=== PATIENT | female | born 1980 | race Caucasian/White ===

== ENCOUNTER 2017-01-17 10:54 | Emergency (ER) | payer OTHER ==
[2017-01-17 11:09] VITALS: TEMP 98
[2017-01-17] MEDS ORDERED: DIPH,PERTUS(ACELL)TETVAC-LF 0.5 ML VIAL IM ONE (11:48)
[2017-01-17] MEDS ORDERED: IBUPROFEN 800 MG TAB PO STA (11:49)
--- NOTE | 2017-01-17 12:28 | ED ---
Head Injury HPI - General Chief complaint: Head Injury Stated complaint: head injury Time Seen by Provider: 01/17/17 11:11 Source: patient Mode of arrival: ambulatory Limitations: no limitations - History of Present Illness Initial comments: 36-year-old female presented for evaluation of scalp laceration. She states that she was bending down to grab something for her dog and when she stood up she hit the left parietal side of her head on her dining room table. She denies any loss of consciousness or anticoagulation use however she states that she has since had an headache. She denies any intractable nausea or vomiting, dizziness, ataxia, or change in vision. Bleeding was controlled prior to arrival to the ED. - Related Data Previous Rx's Medication Instructions Recorded Ibuprofen [Motrin] 800 mg PO Q6HR #30 tab 01/17/17 Allergies/Adverse reactions: Allergies Allergy/AdvReac Type Severity Reaction Status Date / Time unknown antibiotic Allergy Rash/Hives Uncoded 01/17/17 11:09 Review of Systems ROS Statement: Those systems with pertinent positive or pertinent negative responses have been documented in the HPI. ROS Other: All systems not noted in ROS Statement are negative. Eyes: Denies: eye pain, vision change Respiratory: Denies: cough, dyspnea Cardiovascular: Denies: chest pain, dyspnea on exertion Gastrointestinal: Denies: nausea, vomiting Skin: Reports: lesions (Laceration). Denies: rash Neurological: Reports: headache. Denies: weakness Past Medical History Additional Past Medical History / Comment(s): hx back pain History of Any Multi-Drug Resistant Organisms: None Reported Past Surgical History: Section, Tubal Ligation Additional Past Surgical History / Comment(s): surgery to throat for cellulitis, Past Psychological History: Bipolar Smoking Status: Former smoker Past Alcohol Use History: None Reported Past Drug Use History: None Reported, Marijuana General Exam Limitations: no limitations General appearance: alert, in no apparent distress Head exam: Present: normocephalic, other (Scalp laceration) Eye exam: Present: normal appearance, PERRL, EOMI ENT exam: Present: normal exam, normal oropharynx Neck exam: Present: full ROM. Absent: tenderness Respiratory exam: Present: normal lung sounds bilaterally. Absent: respiratory distress Cardiovascular Exam: Present: regular rate, normal rhythm Rectal exam: Present: deferred Back exam: Present: normal inspection, full ROM Neurological exam: Present: alert, oriented X3, CN II-XII intact, normal gait, reflexes normal. Absent: altered, abnormal gait, motor sensory deficit Skin exam: Present: warm, dry (2 cm laceration to left parietal scalp) Course Vital Signs 01/17/17 01/17/17 11:06 12:41 Temperature 98.0 F Pulse Rate 78 83 Respiratory 16 18 Rate Blood Pressure 130/63 127/76 O2 Sat by Pulse 98 98 Oximetry Procedures - Laceration Laceration #1 Consent Obtained: verbal consent Time Out Performed: Yes Indication: laceration Site: scalp Size (cm): 2 Description: linear Depth: involves muscle layer, arterial injury Type of Sutures: other (Ceres) Number of Sutures: 2 Complications: pain Patient Tolerated Procedure: well Medical Decision Making - Medical Decision Making 36-year-old female presenting for evaluation of left parietal scalp laceration. Only associated symptoms are headache. Denies any loss of consciousness or anticoagulant use. Physical examination reveals cranial nerves II through XII intact without focal neurologic deficits and normal gait and station. Laceration is 2 cm and linear, easily approximated. She is uncertain of her last tetanus update and this will be provided today. Wound was irrigated copiously and then 2 wendy were applied without consultation. Patient was given staple care instructions and instructed to return to this facility within 5-7 days for staple removal. Further advised to return to this facility if her symptoms should worsen or persist. She acknowledged an understanding of all information provided and agreed with this plan of care. Disposition Clinical Impression: Scalp laceration Disposition: HOME SELF-CARE Condition: Stable Instructions: Laceration (ED), Staple Care (ED) Additional Instructions: Please use medication as discussed. Please follow up with family doctor if symptoms have not improved over the next two days. Please return to the emergency room if your symptoms increase or worsen or for any other concerns. Prescriptions: Ibuprofen [Motrin] 800 mg PO Q6HR #30 tab Referrals: Braeden Pratt MD [Primary Care Provider] - 1-2 days Time of Disposition: 12:28
[2017-01-17 12:43] VITALS: BP 127/76; PULSE 83; RESP 18
== END 2017-01-17 12:43 | disposition home or self-care (01) ==
LOC: EC 10:54
DX: S01.01XA Laceration without foreign body of scalp, initial encounter (principal); Z87.891 Personal history of nicotine dependence; Z23 Encounter for immunization; Z88.1 Allergy status to other antibiotic agents; W22.8XXA Striking against or struck by other objects, initial encounter; Y93.89 Activity, other specified
CPT/HCPCS: 12001; 90471; 90715; 99283

== ENCOUNTER 2017-04-27 21:04 | Emergency (ER) | payer OTHER ==
[2017-04-27 21:09] VITALS: RESP 18
--- NOTE | 2017-04-27 21:46 | ED ---
ENT HPI - General Chief complaint: ENT Stated complaint: white spots on throat Time Seen by Provider: 04/27/17 21:16 Source: patient, RN notes reviewed Mode of arrival: ambulatory Limitations: no limitations - History of Present Illness Initial comments: This is a 36-year-old female who presents to the emergency department with chief complaint of sore throat. Patient states that she awoke this morning with a sore throat. She states that it started to feel better throughout the day. She took a nap and woke up at approximately 5 PM this evening. She states that her sore throat had returned. She looked in the mirror and noticed white spots on her tonsils. Patient states that she also feels warm and has chills. She states that she is a current, every day smoker and does have a mild cough. Denies any recorded fevers. Denies abdominal pain, nausea or vomiting, diarrhea or constipation. Denies any difficulty breathing. Patient is concerned because she has a history of cellulitis of the throat, for which she had to be admitted and have surgery. - Related Data Previous Rx's Medication Instructions Recorded Ibuprofen [Motrin] 800 mg PO Q6HR #30 tab 01/17/17 Amoxicillin 500 mg PO Q12HR #20 cap 04/27/17 Allergies Allergy/AdvReac Type Severity Reaction Status Date / Time unknown antibiotic Allergy Rash/Hives Uncoded 04/27/17 21:09 Review of Systems ROS Statement: Those systems with pertinent positive or pertinent negative responses have been documented in the HPI. ROS Other: All systems not noted in ROS Statement are negative. Past Medical History Additional Past Medical History / Comment(s): hx back pain, cellulitis in throat History of Any Multi-Drug Resistant Organisms: None Reported Past Surgical History: Section, Tubal Ligation Additional Past Surgical History / Comment(s): surgery to throat for cellulitis, Past Psychological History: Bipolar Smoking Status: Former smoker Past Alcohol Use History: None Reported Past Drug Use History: None Reported, Marijuana General Exam - General Exam Comments Initial Comments: General: Awake and alert, well-developed; in no apparent distress. Afebrile. HEENT: Head atraumatic, normocephalic. Pupils are equal, round and reactive to light. Extraocular movements intact. Oropharynx moist with erythema and bilateral tonsillar exudates. Soft palate rises normally. No muffled voice or drooling. Left TM is pearly without effusion. Right TM has cerumen impaction. After cerumen disimpaction, right TM is visualized. Right TM is also pearly without effusion. Neck: Supple. Normal ROM. Tender cervical lymphadenopathy. Cardiovascular: Regular rate and rhythm. No murmurs, rubs or gallops. Chest symmetrical. Respiratory: Lungs clear to auscultation bilaterally. No wheezes, rales or rhonchi. Normal respiratory effort with no use of accessory muscles. Musculoskeletal: Normal ROM, no tenderness bilateral upper and lower extremities. Ambulating normally. Skin: [place], warm and dry without rashes or lesions. Neurological: Alert and oriented x3. CN II-XII grossly intact. Speech is fluent and answers are appropriate. No focal neuro deficits. Psychiatric: Normal mood and affect. No overt signs of depression or anxiety noted. Limitations: no limitations Course Vital Signs 04/27/17 04/27/17 21:07 22:53 Temperature 98.8 F 97.8 F Pulse Rate 95 79 Respiratory 18 18 Rate Blood Pressure 145/83 115/73 O2 Sat by Pulse 96 99 Oximetry Procedures - Ear Wax Removal Right Ear Ear Canal Irrigated by: other (myself, ARI) Ear Canal Irrigated With: warm saline using syringe/angiocath Ear Canal(s) Curetted: plastic loops Results: Re-examined: cerumen removed completely TM Visible: TM(s) intact, normal appearance Ear Canal: atraumatic Patient Tolerated Procedure: well, no complications Medical Decision Making - Medical Decision Making This is a 36-year-old female who presents to the emergency department with chief complaint of sore throat. Patient does have exudates on tonsils. Soft palate rises normally. Denies fevers or chills. Denies difficulty breathing. Rapid strep and influenza were negative. Patient does have a history of throat cellulitis. She states she was admitted and had surgery. She was given a dose of steroids while in the emergency department. Soft tissue neck x-ray was performed. This revealed normal epiglottis with some enlargement of adenoids and tonsils. Patient was also tested for mononucleosis. This was negative. She is in no acute distress and vital signs have been stable throughout entire emergency department stay. Patient will be discharged home with a prescription for antibiotics. Return parameters were discussed including difficulty in breathing. Patient will be discharged home at this time. She is in agreement with plan and voices understanding. All questions were answered. - Lab Data Lab Results 04/27/17 04/27/17 04/27/17 Range/Units 21:15 21:15 22:27 Heterophile Antibody Negative (Negative) Influenza Type A RNA Not Detected (Not Detectd) Influenza Type B (PCR) Not Detected (Not Detectd) Group A Strep Rapid Negative (Negative) - Radiology Data Radiology results: report reviewed X-ray soft tissue neck findings: A pleurodesis normal. Subglottic trachea appears normal. Adenoids are indistinct. Tonsils are probably enlarged. Impression: Normal epiglottis. The tonsils and adenoids appear enlarged. As read by Dr. Armijo. Disposition Clinical Impression: Acute pharyngitis Disposition: HOME SELF-CARE Condition: Good Instructions: Pharyngitis (ED) Additional Instructions: Please take medications as prescribed. Please follow up with primary care provider within 1-2 days. Return to emergency department if symptoms should worsen or any concerns arise. Prescriptions: Amoxicillin 500 mg PO Q12HR #20 cap Referrals: Denise Desai PAC [REFERRING] - 1-2 days Time of Disposition: 23:02
[2017-04-27] MEDS ORDERED: methylPREDNISolone SOD SUCCI 125 MG/2 ML VIAL IM STA (22:09)
[2017-04-27 22:54] VITALS: BP 115/73; PULSE 79; TEMP 97.8
--- NOTE | 2017-04-27 22:58 | XR ---
EXAMINATION TYPE: XR soft tissue neck DATE OF EXAM: 04/27/2017 COMPARISON: NONE HISTORY: Sore throat TECHNIQUE: 2 views FINDINGS: Epiglottis is normal. Subglottic trachea appears normal. Adenoids are indistinct. Tonsils a re probably enlarged. IMPRESSION: Normal epiglottis. The tonsils and adenoids appear enlarged.
== END 2017-04-27 23:10 | disposition home or self-care (01) ==
LOC: EC 21:04
DX: J02.9 Acute pharyngitis, unspecified (principal); H61.21 Impacted cerumen, right ear; J05.10 Acute epiglottitis without obstruction; Z87.891 Personal history of nicotine dependence; Z88.1 Allergy status to other antibiotic agents
CPT/HCPCS: 36415; 86308; 87081; 87430; 87502; 70360; 99283; 69210; 96372; J2930

== ENCOUNTER 2017-04-29 16:24 | Inpatient (IN) | payer OTHER ==
[2017-04-29] MEDS ORDERED: RX INFO: IV CONTRAST WAS GIVEN 1 EACH MISC MISCELLANE PRN (17:06)
[2017-04-29] MEDS ORDERED: KETOROLAC 30 MG/ML 1 ML VIAL IVP STA (17:06)
[2017-04-29] MEDS ORDERED: SODIUM CHLORIDE 0.9% 1,000 ML IV STA (17:06)
--- NOTE | 2017-04-29 17:11 | ED ---
General Adult HPI - General Chief complaint: ENT Stated complaint: Throat Pain/Swelling Time Seen by Provider: 04/29/17 16:59 Source: patient, RN notes reviewed Mode of arrival: ambulatory Limitations: no limitations - History of Present Illness Initial comments: 36-year-old female presents to the emergency department with a chief complaint of continued sore throat. Patient was seen here a few days ago and she is started on antibiotics for pharyngitis. She states that she has a history of stroke cellulitis and states that it typically starts is what appears to be pharyngitis and then turns into a skin infection. She states that increased pain and swelling to the anterior aspect of the neck. She states that it is hard to swallow. She states that this is much like what happens when her throat cellulitis occurs. She was concerned due to the continued pain and swelling so she thought that she should be seen. She hasn't had any fever or chills. There is been no nausea or vomiting. She states she is very concerned because it improved for a day and now is getting worse and is reminding her of when she had this throat cellulitis. Patient denies any recent fever, chills, shortness of breath, chest pain, back pain, abdominal pain, nausea vomiting, numbness or tingling, dysuria or hematuria, constipation or diarrhea, headaches or visual changes, or any other current symptoms. - Related Data Home Medications Medication Instructions Recorded Confirmed Ibuprofen [Motrin] 800 mg PO Q6HR PRN 04/29/17 04/29/17 Previous Rx's Medication Instructions Recorded Amoxicillin 500 mg PO Q12HR #20 cap 04/27/17 Allergies Allergy/AdvReac Type Severity Reaction Status Date / Time unknown antibiotic Allergy Rash/Hives Uncoded 04/29/17 16:31 Review of Systems ROS Statement: Those systems with pertinent positive or pertinent negative responses have been documented in the HPI. ROS Other: All systems not noted in ROS Statement are negative. Past Medical History Past Medical History: No Reported History Additional Past Medical History / Comment(s): hx back pain, cellulitis in throat History of Any Multi-Drug Resistant Organisms: None Reported Past Surgical History: Section, Tubal Ligation Additional Past Surgical History / Comment(s): surgery to throat for cellulitis, Past Psychological History: Bipolar Smoking Status: Former smoker Past Alcohol Use History: None Reported Past Drug Use History: None Reported, Marijuana General Exam Limitations: no limitations General appearance: alert, in no apparent distress Head exam: Present: atraumatic, normocephalic, normal inspection Eye exam: Present: normal appearance, PERRL, EOMI. Absent: scleral icterus, conjunctival injection, periorbital swelling ENT exam: Present: mucous membranes moist, other (Erythematous posterior) Neck exam: Present: tenderness (anterior palpation). Absent: normal inspection (minimal swelling), meningismus, lymphadenopathy Respiratory exam: Present: normal lung sounds bilaterally. Absent: respiratory distress, wheezes, rales, rhonchi, stridor Cardiovascular Exam: Present: regular rate, normal rhythm, normal heart sounds. Absent: systolic murmur, diastolic murmur, rubs, gallop, clicks Neurological exam: Present: alert, oriented X3 Psychiatric exam: Present: normal affect, normal mood Skin exam: Present: warm, dry, intact, normal color. Absent: rash Course Vital Signs 04/29/17 04/29/17 16:27 19:12 Temperature 96.8 F L Pulse Rate 97 75 Respiratory 18 18 Rate Blood Pressure 121/67 131/59 O2 Sat by Pulse 98 98 Oximetry Medical Decision Making - Medical Decision Making 36 yo female presents to the ER with cc of throat swelling. This time patient' s lab work and CAT scan of been reviewed. Due to her history of a what she states is a throat cellulitis and the fact that she feels increased swelling to the anterior neck and difficulty swallowing as well as elevated white count we will admit the patient on Unasyn. The patient will be admitted to Dr. Story who spoke with Dr. Hughes regarding the patient we will consult ENT as well. Patient is in agreement with this plan all questions have been answered. - Lab Data Result diagrams: 04/29/17 17:19 04/29/17 17:19 Lab Results 04/29/17 04/29/17 Range/Units 17:19 17:19 WBC 16.9 H (3.8-10.6) k/uL RBC 5.19 (3.80-5.40) m/uL Hgb 13.6 (11.4-16.0) gm/dL Hct 44.8 (34.0-46.0) % MCV 86.4 (80.0-100.0) fL MCH 26.3 (25.0-35.0) pg MCHC 30.4 L (31.0-37.0) g/dL RDW 14.5 (11.5-15.5) % Plt Count 357 (150-450) k/uL Neutrophils % 73 % Lymphocytes % 19 % Monocytes % 4 % Eosinophils % 2 % Basophils % 0 % Neutrophils # 12.3 H (1.3-7.7) k/uL Lymphocytes # 3.3 (1.0-4.8) k/uL Monocytes # 0.8 (0-1.0) k/uL Eosinophils # 0.3 (0-0.7) k/uL Basophils # 0.1 (0-0.2) k/uL Hypochromasia Slight Sodium 144 (137-145) mmol/L Potassium 4.0 (3.5-5.1) mmol/L Chloride 106 (98-107) mmol/L Carbon Dioxide 25 (22-30) mmol/L Anion Gap 13 mmol/L BUN 13 (7-17) mg/dL Creatinine 0.80 (0.52-1.04) mg/dL Est GFR (MDRD) Af Amer >60 (>60 ml/min/1.73 sqM) Est GFR (MDRD) Non-Af >60 (>60 ml/min/1.73 sqM) Glucose 88 (74-99) mg/dL Calcium 9.6 (8.4-10.2) mg/dL Total Bilirubin 0.4 (0.2-1.3) mg/dL AST 17 (14-36) U/L ALT 24 (9-52) U/L Alkaline Phosphatase 93 (38-126) U/L Total Protein 6.9 (6.3-8.2) g/dL Albumin 4.1 (3.5-5.0) g/dL - Radiology Data Radiology results: report reviewed, image reviewed Disposition Clinical Impression: Acute pharyngitis, Submandibular gland infection Disposition: ADMITTED IP TO THIS [facility] Condition: Stable Referrals: Braeden Pratt MD [Primary Care Provider] - 1-2 days Decision Date: 04/29/17 Decision Time: 19:20
[2017-04-29 17:37] LABS: Basophils # (A) 0.1 k/uL (0-0.2); Basophils % (A) 0 %; Eosinophils # (A) 0.3 k/uL (0-0.7); Eosinophils % (A) 2 %; HCT 44.8 % (34.0-46.0); HGB 13.6 gm/dL (11.4-16.0); Hypochromasia Slight; Lymphocytes # (A) 3.3 k/uL (1.0-4.8); Lymphocytes % (A) 19 %; MCH 26.3 pg (25.0-35.0); MCHC 30.4 g/dL (31.0-37.0); MCV 86.4 fL (80.0-100.0); Mean Platelet Volume 7.3; Monocytes # (A) 0.8 k/uL (0-1.0); Monocytes % (A) 4 %; Neutrophils # (A) 12.3 k/uL (1.3-7.7); Neutrophils % (A) 73 %; Platelet Count 357 k/uL (150-450); RBC 5.19 m/uL (3.80-5.40); RDW 14.5 % (11.5-15.5); WBC 16.9 k/uL (3.8-10.6)
[2017-04-29 17:47] LABS: ALT 24 U/L (9-52); AST 17 U/L (14-36); Albumin 4.1 g/dL (3.5-5.0); Alkaline Phosphatase 93 U/L (38-126); Anion Gap 13 mmol/L; Blood Urea Nitrogen 13 mg/dL (7-17); Calcium 9.6 mg/dL (8.4-10.2); Carbon Dioxide 25 mmol/L (22-30); Chloride 106 mmol/L (98-107); Glucose 88 mg/dL (74-99); Sodium 144 mmol/L (137-145); Total Bilirubin 0.4 mg/dL (0.2-1.3); Total Protein 6.9 g/dL (6.3-8.2)
--- NOTE | 2017-04-29 18:28 | CT ---
EXAMINATION TYPE: CT soft tissue neck w con DATE OF EXAM: 04/29/2017 5:56 PM COMPARISON: CT 06/25/2013 HISTORY: Throat swelling and pain, Hx of cellulitis to throat. CT DLP: 648 mGycm Automated exposure control for dose reduction was used. CONTRAST: CT scan of the neck is performed following with IV Contrast, patient injected with 100 mL of Omnipaqu e 300. Axial images are obtained, coronal and sagittal reformatted images are reviewed. FINDINGS: Airway: Widely patent. No abnormalities. Parotid/submandibular glands: No gross abnormality seen. Carotid/Vascular Structures: Patent and unremarkable. Osseous Structures: Negative. NECK SOFT TISSUES: Are no abnormal fluid or gas collections to suggest abscess. No geographic focus o f inflammatory change. IMPRESSION: NEGATIVE EXAMINATION.
[2017-04-29] MEDS ORDERED: AMPICILLIN-SULBACTAM 3 GM in SODIUM CHLORIDE 0.9% 100 ML IVPB STA (19:13)
[2017-04-29] MEDS ORDERED: NALOXONE 0.4 MG/ML 1 ML VIAL IV PRN (19:20)
[2017-04-29] MEDS ORDERED: ACETAMINOPHEN TAB 325 MG TAB PO PRN (19:20)
[2017-04-29] MEDS: SODIUM CHLORIDE 0.9% 1,000 ML IV SCH (19:30)
[2017-04-29 20:41] VITALS: BMI 34.3
--- NOTE | 2017-04-29 20:47 | P.HPIM ---
History of Present Illness 36-year-old female was recently seen in ER with fever and sore throat and at that time infectious mononucleosis testing was done which was negative patient was sent home on him home on amoxicillin patient now came in with the swelling and redness and of the chin area, patient is admitted for submandibular cellulitis. ENT was consulted patient was started on ampicillin sulbactam patient has poor dentition with some redness in the tongue there is no Bradley's angina patient was planing of drooling denied any trismus. Patient is afebrile now. His CT of the head and neck soft tissue did not reveal any soft tissue neck abscess or deep plane abscesses in the neck there is no Bradley's angina Review of Systems REVIEW OF SYSTEMS: CONSTITUTIONAL: No fever, no malaise, no fatigue. HEENT: No recent visual problems or hearing problems. Denied any sore throat. Cellulitis under the chin area CARDIOVASCULAR: No chest pain, orthopnea, PND, no palpitations, no syncope. PULMONARY: No shortness of breath, no cough, no hemoptysis. GASTROINTESTINAL: No diarrhea, no nausea, no vomiting, no abdominal pain. Normoactive bowel sounds. NEUROLOGICAL: No headaches, no weakness, no numbness. HEMATOLOGICAL: Denies any bleeding or petechiae. GENITOURINARY: Denies any burning micturition, frequency, or urgency. MUSCULOSKELETAL/RHEUMATOLOGICAL: Denies any joint pain, swelling, or any muscle pain. ENDOCRINE: Denies any polyuria or polydipsia. The rest of the 14-point review of systems is negative. Past Medical History Past Medical History: No Reported History Additional Past Medical History / Comment(s): hx back pain, cellulitis in throat History of Any Multi-Drug Resistant Organisms: None Reported Past Surgical History: Appendectomy, Section, Cholecystectomy, Tubal Ligation Additional Past Surgical History / Comment(s): surgery to throat for cellulitis, Past Anesthesia/Blood Transfusion Reactions: No Reported Reaction Past Psychological History: Bipolar Smoking Status: Current some day smoker Past Alcohol Use History: None Reported Past Drug Use History: None Reported, Marijuana Medications and Allergies Home Medications Medication Instructions Recorded Confirmed Type Amoxicillin 500 mg PO Q12HR #20 cap 04/27/17 04/29/17 Rx Ibuprofen [Motrin] 800 mg PO Q6HR PRN 04/29/17 04/29/17 History Allergies Allergy/AdvReac Type Severity Reaction Status Date / Time unknown antibiotic Allergy Rash/Hives Uncoded 04/29/17 16:31 Physical Exam Vitals: Vital Signs Temp Pulse Resp BP Pulse Ox 04/29/17 19:56 98.7 F 04/29/17 19:12 75 18 131/59 98 04/29/17 16:27 96.8 F L 97 18 121/67 98 Intake and Output 04/29/17 04/29/17 04/29/17 06:59 14:59 22:59 Other: Weight 90.718 kg Patient Weight 04/30/17 06:59 Weight 90.718 kg PHYSICAL EXAMINATION: GENERAL: The patient is alert and oriented x3, not in any acute distress. Well developed, well nourished. HEENT: Pupils are round and equally reacting to light. EOMI. No scleral icterus. No conjunctival pallor. Normocephalic, atraumatic. No pharyngeal erythema. No thyromegaly. A she does caries teeth CARDIOVASCULAR: S1 and S2 present. No murmurs, rubs, or gallops. PULMONARY: Chest is clear to auscultation, no wheezing or crackles. ABDOMEN: Soft, nontender, nondistended, normoactive bowel sounds. No palpable organomegaly. MUSCULOSKELETAL: No joint swelling or deformity. EXTREMITIES: No cyanosis, clubbing, or pedal edema. NEUROLOGICAL: Gross neurological examination did not reveal any focal deficits. SKIN: Patient does have redness local is of temperature and tenderness under the chin area. Results CBC & Chem 7: 04/29/17 17:19 04/29/17 17:19 Labs: Abnormal Lab Results - Last 24 Hours (Table) 04/29/17 Range/Units 17:19 WBC 16.9 H (3.8-10.6) k/uL MCHC 30.4 L (31.0-37.0) g/dL Neutrophils # 12.3 H (1.3-7.7) k/uL Thrombosis Risk Factor Assmnt - Choose All That Apply Any of the Below Risk Factors Present?: Yes Each Factor Represents 1 point: Obesity (BMI >25) Other Risk Factors: No Other congenital or acquired thrombophilia - If yes, enter type in comment: No Thrombosis Risk Factor Assessment Total Risk Factor Score: 1 Thrombosis Risk Factor Assessment Level: Low Risk Assessment and Plan Plan: -Submandibular superficial skin cellulitis: Patient is on ampicillin sulbactam which will be continued ENT was consulted -Leukocytosis due to assessment a bowel
[2017-04-29] MEDS: KETOROLAC 30 MG/ML 1 ML VIAL IVP PRN (22:29)
[2017-04-30] MEDS: AMPICILLIN-SULBACTAM 3 GM in SODIUM CHLORIDE 0.9% 100 ML IVPB SCH ×3 (03:16→19:09)
[2017-04-30] MEDS: KETOROLAC 30 MG/ML 1 ML VIAL IVP PRN (05:43)
[2017-04-30] MEDS: SODIUM CHLORIDE 0.9% 1,000 ML IV SCH ×3 (07:04→16:20)
[2017-04-30 07:13] LABS: Basophils # (A) 0.1 k/uL (0-0.2); Basophils % (A) 0 %; Eosinophils # (A) 0.2 k/uL (0-0.7); Eosinophils % (A) 2 %; HCT 38.9 % (34.0-46.0); Hypochromasia Slight; Lymphocytes # (A) 3.1 k/uL (1.0-4.8); Lymphocytes % (A) 22 %; MCH 26.3 pg (25.0-35.0); MCHC 30.7 g/dL (31.0-37.0); MCV 85.6 fL (80.0-100.0); Mean Platelet Volume 7.3; Monocytes # (A) 0.8 k/uL (0-1.0); Monocytes % (A) 6 %; Neutrophils # (A) 10.1 k/uL (1.3-7.7); Neutrophils % (A) 70 %; Platelet Count 311 k/uL (150-450); RBC 4.54 m/uL (3.80-5.40); WBC 14.4 k/uL (3.8-10.6)
[2017-04-30 07:29] LABS: ALT 27 U/L (9-52); AST 14 U/L (14-36); Alkaline Phosphatase 86 U/L (38-126); Anion Gap 7 mmol/L; Blood Urea Nitrogen 9 mg/dL (7-17); Calcium 8.4 mg/dL (8.4-10.2); Carbon Dioxide 25 mmol/L (22-30); Chloride 107 mmol/L (98-107); Glucose 84 mg/dL (74-99); Potassium 3.6 mmol/L (3.5-5.1); Sodium 139 mmol/L (137-145); Total Bilirubin 0.3 mg/dL (0.2-1.3); Total Protein 5.5 g/dL (6.3-8.2)
--- NOTE | 2017-04-30 09:10 | P.PN ---
Subjective 36-year-old female admitted for submandibular and submental cellulitis and patient has an in duration under the chin area which was not present yesterday which is concerning we'll let her check with ENT. Patient will be continued on Unasyn. Patient pain is fairly controlled and patient is able to swallow after ketorolac. We will add morphine for her pain control as patient is quite uncomfortable at this time. Objective - Vital Signs Vital signs: Vital Signs Temp 98.0 F 04/30/17 07:00 Pulse 79 04/30/17 08:00 Resp 18 04/30/17 08:00 BP 105/55 04/30/17 07:00 Pulse Ox 98 04/30/17 07:00 Intake & Output 04/29/17 04/30/17 04/30/17 18:59 06:59 18:59 Intake Total 1250 Balance 1250 Weight 90.718 kg 90.718 kg 90.718 kg Intake: Intake, IV Titration 1000 Amount Sodium Chloride 0.9% 1, 1000 000 ml @ 100 mls/hr IV . Q10H [facility] Rx#:[id number] Oral 250 Other: Voiding Method Toilet Toilet # Voids 2 - Exam PHYSICAL EXAMINATION: GENERAL: The patient is alert and oriented x3, not in any acute distress. Well developed, well nourished. HEENT: Pupils are round and equally reacting to light. EOMI. No scleral icterus. No conjunctival pallor. Normocephalic, atraumatic. No pharyngeal erythema. No thyromegaly. A she does caries teeth CARDIOVASCULAR: S1 and S2 present. No murmurs, rubs, or gallops. PULMONARY: Chest is clear to auscultation, no wheezing or crackles. ABDOMEN: Soft, nontender, nondistended, normoactive bowel sounds. No palpable organomegaly. MUSCULOSKELETAL: No joint swelling or deformity. EXTREMITIES: No cyanosis, clubbing, or pedal edema. NEUROLOGICAL: Gross neurological examination did not reveal any focal deficits. SKIN: Patient does have redness local is of temperature and tenderness under the chin area. - Labs CBC & Chem 7: 04/30/17 06:50 04/30/17 06:50 Labs: Abnormal Lab Results - Last 24 Hours (Table) 04/29/17 04/30/17 04/30/17 Range/Units 17:19 06:50 06:50 WBC 16.9 H 14.4 H (3.8-10.6) k/uL MCHC 30.4 L 30.7 L (31.0-37.0) g/dL Neutrophils # 12.3 H 10.1 H (1.3-7.7) k/uL Total Protein 5.5 L (6.3-8.2) g/dL Albumin 3.0 L (3.5-5.0) g/dL Assessment and Plan Plan: -Submandibular superficial skin cellulitis: Patient is on ampicillin sulbactam which will be continued ENT was consulted. Patient is on ketorolac and morphine for pain -Leukocytosis due to assessment a bowel -Mild dysphagia: Secondary to inflammation of the throat, which is better after toradol
[2017-04-30] MEDS: MORPHINE SULFATE 4 MG/ML SYRINGE IVP PRN ×3 (11:44→21:08)
[2017-05-01] MEDS: MORPHINE SULFATE 4 MG/ML SYRINGE IVP PRN ×3 (01:50→12:34)
[2017-05-01] MEDS: AMPICILLIN-SULBACTAM 3 GM in SODIUM CHLORIDE 0.9% 100 ML IVPB SCH ×2 (02:38→11:02)
[2017-05-01] MEDS: SODIUM CHLORIDE 0.9% 1,000 ML IV SCH ×2 (11:02→16:52)
[2017-05-01] MEDS: ERTAPENEM 1 GM in SODIUM CHLORIDE 0.9% 50 ML IVPB SCH (12:33)
[2017-05-01] MEDS ORDERED: HYDROcodone/APAP 5-325MG 1 EACH TAB PO PRN (16:36)
[2017-05-01 17:05] LABS: C Reactive Protein 20.4 mg/L (<10.0)
[2017-05-01 18:26] LABS: Appearance,Urine Clear (Clear); Bilirubin,Urine Negative (Negative); Blood,Urine Moderate (Negative); Calcium Oxalate Crystals,Urine Moderate /hpf; Color,Urine Light Yellow; Glucose,Urine (UA) Negative (Negative); Ketones,Urine Negative (Negative); Leukocyte Esterase,Urine Negative (Negative); Mucus,Urine Rare /hpf; Nitrite,Urine Negative (Negative); PH, Urine 7.5 (5.0-8.0); Protein,Urine Negative (Negative); RBC,Urine 108 /hpf (0-5); Specific Gravity,Urine 1.005 (1.001-1.035); Squamous Epithelial Cell,Urine 1 /hpf (0-4); Urobilinogen,Urine <2.0 mg/dL (<2.0); WBC,Urine 2 /hpf (0-5)
[2017-05-01 18:41] LABS: Amphetamine Screen,Urine Not Detected (NotDetected); Barbiturate Screen,Urine Not Detected (NotDetected); Benzodiazepines Screen,Urine Not Detected (NotDetected); Cocaine Screen,Urine Not Detected (NotDetected); Methadone Screen, Urine Not Detected (NotDetected); Opiate Screen,Urine Detected (NotDetected); Oxycodone Screen, Urine Not Detected (NotDetected); Phencyclidine Screen,Urine Not Detected (NotDetected); Tricyclic Antidepressant,Urine Not Detected (NotDetected); Urn Cannabinoid Scrn Detected (NotDetected)
--- NOTE | 2017-05-01 18:54 | PN ---
PROGRESS NOTE DATE OF SERVICE: 05/01/2017 This 36-year-old woman was admitted with features of submandibular submental cellulitis is being closely monitored at this time. The patient had pain and swelling under the chin. This is the third time the patient is having this difficulty. The patient previously had exploration also which they did not find anything previously according to her. Patient is on broad-spectrum IV antibiotics. ENT and ID evaluations are in progress at this time. PAST MEDICAL HISTORY: Reviewed. REVIEW OF SYSTEMS: ENT: As mentioned earlier. CARDIOVASCULAR: No angina. RESPIRATORY: No cough or hemoptysis. GI: No nausea. : No dysuria. NERVOUS SYSTEM: No numbness, weakness. CURRENT MEDICATIONS: Reviewed and include: 1. Tylenol 650 q.6h p.r.n. 2. [place] 5 mg daily. 3. Keppra I g IV b.i.d. daily. 4. Heparin 5000 subcu b.i.d. 5. Flexeril p.r.n. 6. Morphine p.r.n. 7. Narcan. 8. Protonix. 9. Restoril. PHYSICAL EXAMINATION: Alert and oriented x3. Pulse is 80, blood pressure is 106/50, respiration 18, temperature 98.2, pulse ox 99% on room air. HEENT: Conjunctivae normal. Neck minimal erythema and tenderness in the submental area present. No lymph node enlargement. Oral mucosa is slightly erythematous. CARDIOVASCULAR: S1, S2. No S3, no S4. RESPIRATORY: Breath sounds diminished in the bases. A few scattered rhonchi. No crackles. ABDOMEN: Soft, nontender. No mass palpable. No hepatosplenomegaly. LEGS: No edema, no swelling. NERVOUS SYSTEM: Higher functions as mentioned. Moves all 4 limbs, otherwise no focal motor sensory deficits noted. LAB INVESTIGATIONS: WBC 16.9 and 14.4. ASSESSMENT: 1. Recurrent submental and submandibular cellulitis for evaluation. 2. Upper respiratory infection and tonsillitis. 3. History of back pain, degenerative joint disease. 4. History of appendectomy. 5. History of section. 6. History of cholecystectomy. 7. History of cellulitis. 8. History of bipolar. 9. History nicotine dependence. 10.History of THC. RECOMMENDATIONS AND DISCUSSION: This 36-year-old woman who presented with multiple complex medical issues, will monitor the patient closely. Continue the current management and will continue broad- spectrum IV antibiotics. Infectious Disease evaluation. ENT consultation. DVT prophylaxis. Symptomatic treatment. Pain medications. Cutdown the IV fluids. I would also recommend sedimentation rate and CRP. Cultures reviewed and obtained as mentioned earlier. I would also recommend MRI of the neck also. The possibility of thyroglossal cyst needs to be ruled out as well or cyst needs to be ruled out. Otherwise the prognosis guarded. Further recommendations to follow. MMODL / IJN: [id number] / YAMINI
[2017-05-01] MEDS ORDERED: TEMAZEPAM 15 MG CAP PO PRN (21:00)
[2017-05-01] MEDS: HEPARIN SODIUM,PORCINE 5,000 UNIT/ML 1 ML VIAL SQ SCH ×2 (21:50→21:53)
--- NOTE | 2017-05-01 23:19 | P.CONS ---
History of Present Illness - Reason for Consult Consult date: 05/01/17 - Chief Complaint pain below the chin - History of Present Illness 36-year-old female presents to the emergency center with a sudden onset of significant pain and discomfort below her chin. It is associated with some thickness to her neck and pain radiating from below her chin to the bilateral jaws. She has some difficulty with swallowing although it is not severe. She has discomfort in the region which also results in headache. It is associated with fever and chill and difficulty swallowing solids at times. She's had this in the past. She required incision and drainage one time when she was very ill. She relates in the past her throat is actually close quite a bit because of the swelling which is why she sought care because she didn't want to become ill again like she had in the past. He has noted she feels that she has a fever and chill she is not having rigors. She's had no weight loss. She has no trauma to the area she denies a severe mouth pain. She's had no recent dental work. Does not complaining any significant tooth pains. Denies any new sinus problems. She's had no recent trauma. Review of Systems Gen. patient does complain of fever and chills no rigors HEENT: Has had headache but no acute visual change. Denies sinus or mouth discomforts. Denies significant oral cavity pain. Does have the difficulty as per the HPI with the pain in the submental area that radiates to the temporomandibular joints bilaterally does not have significant neck stiffness at this time is not having difficulties with swallowing at this time. Lungs: Denies significant shortness of breath, cough, sputum production, or hemoptysis. Cardiovascular: Denies significant shortness of breath, chest pain, chest wall pain, orthopnea, dyspnea on exertion, syncope Gastrointestinal:Denies nausea, vomiting, diarrhea, constipation, hematemesis, melena, hematochezia. No no significant change of bowel habit noticed. Musculoskeletal: denies significant myalgias or arthralgias. No new joint swelling. Denies new back pain. Skin: Denies new rash or lesions. No new ulcers or wounds are related.. Neuro: Denies headache or visual change. Denies any new onset weakness or difficulty with ambulation. Denies falls or seizures. Psychiatric:Denies anxiety or depression. Endocrine: Complains of fatigue but no significant weight loss. Past Medical History Past Medical History: No Reported History (Mann) Additional Past Medical History / Comment(s): hx back pain, cellulitis in throat History of Any Multi-Drug Resistant Organisms: None Reported Past Surgical History: Appendectomy, Section, Cholecystectomy, Tubal Ligation Additional Past Surgical History / Comment(s): surgery to throat for cellulitis, Past Anesthesia/Blood Transfusion Reactions: No Reported Reaction Past Psychological History: Bipolar Additional Psychological History / Comment(s): Single. 8 year-old child lives with her. Her father is who helps her when she is ill. Has 3 pet dogs. None of them are new. No current partner. Works in a restaurant setting. No experience. No international travel. Positive tobacco use but denies significant alcohol use or recreational drug use. Relates to have a negative HIV test several years ago. Smoking Status: Current some day smoker Past Alcohol Use History: None Reported Past Drug Use History: None Reported, Marijuana Medications and Allergies Home Medications and Allergies Comment(s): Current Medications Acetaminophen (Tylenol Tab) 650 mg PO Q6HR PRN PRN Reason: Mild Pain or Fever > 100.5 Hydrocodone Bitart/Acetaminophen ([place] 5-325) 1 each PO Q6HR PRN PRN Reason: MODERATE Pain Heparin Sodium (Porcine) (Heparin) 5,000 unit SQ Q12HR [facility] Last Admin: 05/01/17 21:53 Dose: Not Given Sodium Chloride (Saline 0.9%) 1,000 mls @ 20 mls/hr IV .Q24H [facility] Last Admin: 05/01/17 16:52 Dose: Not Given Ertapenem 1 gm/ Sodium (Chloride) 50 mls @ 100 mls/hr IVPB Q24H [facility] Last Admin: 05/01/17 12:33 Dose: 100 mls/hr Ketorolac Tromethamine (Toradol) 30 mg IVP Q6HR PRN PRN Reason: Moderate Pain Stop: 05/04/17 19:21 Last Admin: 04/30/17 05:43 Dose: 30 mg Morphine Sulfate (Morphine Sulfate (Inj)) 4 mg IVP Q4HR PRN PRN Reason: Pain Last Admin: 05/01/17 12:34 Dose: 4 mg Naloxone HCl (Narcan) 0.2 mg IV Q2M PRN PRN Reason: Opioid Reversal Pantoprazole Sodium (Protonix) 40 mg PO AC-BRKFST NOE Temazepam (Restoril) 15 mg PO HS PRN PRN Reason: Insomnia Home Medications Medication Instructions Recorded Confirmed Type Amoxicillin 500 mg PO Q12HR #20 cap 04/27/17 04/29/17 Rx Ibuprofen [Motrin] 800 mg PO Q6HR PRN 04/29/17 04/29/17 History Allergies Allergy/AdvReac Type Severity Reaction Status Date / Time unknown antibiotic Allergy Rash/Hives Uncoded 04/29/17 16:31 Physical Exam Vitals: Vital Signs Temp Pulse Resp BP Pulse Ox 05/01/17 15:41 80 18 05/01/17 15:00 97.9 F 77 18 112/58 99 05/01/17 08:00 80 18 05/01/17 07:00 98.3 F 80 18 106/57 98 Intake and Output 05/01/17 05/01/17 05/01/17 06:59 14:59 22:59 Intake Total 1330 Balance 1330 Intake: Intake, IV Titration 850 Amount Ampicillin-Sulbactam 3 gm 100 In Sodium Chloride 0.9% 100 ml @ 100 mls/hr IVPB Q8H [facility] Rx#:[id number] Ertapenem 1 gm In Sodium 50 Chloride 0.9% 50 ml @ 100 mls/hr IVPB Q24H [facility] Rx# :[id number] Sodium Chloride 0.9% 1, 700 000 ml @ 100 mls/hr IV . Q10H [facility] Rx#:[id number] Oral 480 Other: Voiding Method Toilet Toilet Toilet # Voids 1 Weight 90.718 kg Patient Weight 05/02/17 06:59 Weight 90.718 kg HEENT: Anicteric conjunctiva are pink and moist nasal mucosa grossly intact without significant lesions, there is no thrush. Neck: The neck is supple there is no thyromegaly. There is significant swelling in the submental area. There is also significant swelling to the anterior cervical chain left greater than right. It is quite tender and full. There is warmth and erythema over the submental area however is no fluctuance. He has noted the pharynx is without erythema or exudate or lesions Lungs: Good bilateral air entry without significant crackles or wheezing. There is no significant bronchial sounds. There is no egophony or dullness. Heart: Regular rate and rhythm with an audible S1-S2, no S3 no S4. There is no significant murmur click or rub, PMI was nondisplaced. Abdomen: Obese Positive bowel sounds soft and nontender without palpable masses or organomegaly. There was no guarding or rebound. Extremities: The upper extremities have excellent pulses they are symmetric, no significant petechiae or telangiectasia. No splinter hemorrhages were noted. The lower extremities are free from significant edema. The peripheral pulses were 2+ and symmetric. Neuro: Awake alert oriented to person place and time. There are no acute new gross focal sensory motor deficits. Results CBC & Chem 7: 04/30/17 06:50 04/30/17 06:50 Labs: Abnormal Lab Results - Last 24 Hours (Table) 05/01/17 05/01/17 Range/Units 06:50 17:50 C-Reactive Protein 20.4 H (<10.0) mg/L Urine Blood Moderate H (Negative) Urine RBC 108 H (0-5) /hpf Calcium Oxalate Crystal Moderate H (None) /hpf Urine Mucus Rare H (None) /hpf Urine Opiates Screen Detected H (NotDetected) U Marijuana (THC) Screen Detected H (NotDetected) Microbiology - Last 24 Hours (Table) 04/29/17 17:19 Blood Culture - Preliminary Blood No Growth after 48 hours Laboratory Results WBC 14.4 k/uL (3.8-10.6) H 04/30/17 06:50 RBC 4.54 m/uL (3.80-5.40) 04/30/17 06:50 Hgb 12.0 gm/dL (11.4-16.0) 04/30/17 06:50 Hct 38.9 % (34.0-46.0) 04/30/17 06:50 MCV 85.6 fL (80.0-100.0) 04/30/17 06:50 MCH 26.3 pg (25.0-35.0) 04/30/17 06:50 MCHC 30.7 g/dL (31.0-37.0) L 04/30/17 06:50 RDW 14.0 % (11.5-15.5) 04/30/17 06:50 Plt Count 311 k/uL (150-450) 04/30/17 06:50 Neutrophils % 70 % 04/30/17 06:50 Lymphocytes % 22 % 04/30/17 06:50 Monocytes % 6 % 04/30/17 06:50 Eosinophils % 2 % 04/30/17 06:50 Basophils % 0 % 04/30/17 06:50 Neutrophils # 10.1 k/uL (1.3-7.7) H 04/30/17 06:50 Lymphocytes # 3.1 k/uL (1.0-4.8) 04/30/17 06:50 Monocytes # 0.8 k/uL (0-1.0) 04/30/17 06:50 Eosinophils # 0.2 k/uL (0-0.7) 04/30/17 06:50 Basophils # 0.1 k/uL (0-0.2) 04/30/17 06:50 Hypochromasia Slight 04/30/17 06:50 Sodium 139 mmol/L (137-145) 04/30/17 06:50 Potassium 3.6 mmol/L (3.5-5.1) 04/30/17 06:50 Chloride 107 mmol/L (98-107) 04/30/17 06:50 Carbon Dioxide 25 mmol/L (22-30) 04/30/17 06:50 Anion Gap 7 mmol/L 04/30/17 06:50 BUN 9 mg/dL (7-17) 04/30/17 06:50 Creatinine 0.70 mg/dL (0.52-1.04) 04/30/17 06:50 Est GFR (MDRD) Af Amer >60 (>60 ml/min/1.73 sqM) 04/30/17 06:50 Est GFR (MDRD) Non-Af >60 (>60 ml/min/1.73 sqM) 04/30/17 06:50 Glucose 84 mg/dL (74-99) 04/30/17 06:50 Calcium 8.4 mg/dL (8.4-10.2) 04/30/17 06:50 Total Bilirubin 0.3 mg/dL (0.2-1.3) 04/30/17 06:50 AST 14 U/L (14-36) 04/30/17 06:50 ALT 27 U/L (9-52) 04/30/17 06:50 Alkaline Phosphatase 86 U/L (38-126) 04/30/17 06:50 C-Reactive Protein 20.4 mg/L (<10.0) H 05/01/17 06:50 Total Protein 5.5 g/dL (6.3-8.2) L 04/30/17 06:50 Albumin 3.0 g/dL (3.5-5.0) L 04/30/17 06:50 TSH 3.460 mIU/L (0.465-4.680) 05/01/17 06:50 Urine Color Light Yellow 05/01/17 17:50 Urine Appearance Clear (Clear) 05/01/17 17:50 Urine pH 7.5 (5.0-8.0) 05/01/17 17:50 Ur Specific [facility] 1.005 (1.001-1.035) 05/01/17 17:50 Urine Protein Negative (Negative) 05/01/17 17:50 Urine Glucose (UA) Negative (Negative) 05/01/17 17:50 Urine Ketones Negative (Negative) 05/01/17 17:50 Urine Blood Moderate (Negative) H 05/01/17 17:50 Urine Nitrite Negative (Negative) 05/01/17 17:50 Urine Bilirubin Negative (Negative) 05/01/17 17:50 Urine Urobilinogen <2.0 mg/dL (<2.0) 05/01/17 17:50 Ur Leukocyte Esterase Negative (Negative) 05/01/17 17:50 Urine RBC 108 /hpf (0-5) H 05/01/17 17:50 Urine WBC 2 /hpf (0-5) 05/01/17 17:50 Ur Squamous Epith Cells 1 /hpf (0-4) 05/01/17 17:50 Calcium Oxalate Crystal Moderate /hpf (None) H 05/01/17 17:50 Urine Mucus Rare /hpf (None) H 05/01/17 17:50 Urine Opiates Screen Detected (NotDetected) H 05/01/17 17:50 Ur Oxycodone Screen Not Detected (NotDetected) 05/01/17 17:50 Urine Methadone Screen Not Detected (NotDetected) 05/01/17 17:50 Ur Propoxyphene Screen Not Detected (NotDetected) 02/25/18 17:50 Ur Barbiturates Screen Not Detected (NotDetected) 05/01/17 17:50 U Tricyclic Antidepress Not Detected (NotDetected) 05/01/17 17:50 Ur Phencyclidine Scrn Not Detected (NotDetected) 05/01/17 17:50 Ur Amphetamines Screen Not Detected (NotDetected) 05/01/17 17:50 U Methamphetamines Scrn Not Detected (NotDetected) 05/01/17 17:50 U Benzodiazepines Scrn Not Detected (NotDetected) 05/01/17 17:50 Urine Cocaine Screen Not Detected (NotDetected) 05/01/17 17:50 U Marijuana (THC) Screen Detected (NotDetected) H 05/01/17 17:50 Microbiology 04/29/17 17:19 Blood Blood Culture - Preliminary No Growth after 48 hours Assessment and Plan (1) Submandibular gland infection Narrative/Plan: 36-year-old female presents to Hospital sitting in pain swelling and discomfort to the submental area as well as to the anterior aspect of the neck to the temporomandibular joints bilaterally. The patient has a history of prior infection in this area one time even requiring a surgical incision and drainage she was having significant abscess that actually interfered with her ability to swallow. She sought care before became severe. As noted she does have a significant swelling and tenderness to this region as well as lymphadenopathy to the anterior cervical chain bilaterally. Patient evaluated for underlying infectious etiology. Antimicrobial therapy will be altered in that she has been on oral outpatient antibiotic therapy with Augmentin and now on Unasyn without significant improvement, will transition to ertapenem or waiting for further data. The location anatomically would make concern to oral cavity etiology for the infection. Underlying viral process of concern and she is willing for HIV testing. We'll also do official Denisse- Olguin viral testing, in that Monospot is not as sensitive and specific. Immunoglobulin titers will be obtained as well as basic autoimmune workup. With pain control she is improved. She will benefit from an ENT consult to evaluate her posterior pharynx to ensure that there is no disease that cannot be evaluated externally. She does have a leukocytosis which she relates has occurred in the past also. Blood culture is pending. Current Visit: Yes Status: Acute Code(s): K11.20 - SIALOADENITIS, UNSPECIFIED SNOMED Code(s): 18110093 (2) Cellulitis, neck Current Visit: Yes Status: Acute Code(s): L03.221 - CELLULITIS OF NECK SNOMED Code(s): 67858323
[2017-05-02 00:34] VITALS: RESP 16
[2017-05-02 07:54] LABS: Basophils % (A) 0 %; Eosinophils # (A) 0.3 k/uL (0-0.7); Eosinophils % (A) 2 %; HCT 39.9 % (34.0-46.0); HGB 12.8 gm/dL (11.4-16.0); Lymphocytes # (A) 2.3 k/uL (1.0-4.8); Lymphocytes % (A) 20 %; MCH 26.7 pg (25.0-35.0); MCHC 32.1 g/dL (31.0-37.0); MCV 83.2 fL (80.0-100.0); Mean Platelet Volume 7.1; Monocytes # (A) 0.5 k/uL (0-1.0); Monocytes % (A) 4 %; Neutrophils # (A) 8.3 k/uL (1.3-7.7); Neutrophils % (A) 72 %; Platelet Count 288 k/uL (150-450); RBC 4.79 m/uL (3.80-5.40); RDW 13.7 % (11.5-15.5); WBC 11.5 k/uL (3.8-10.6)
[2017-05-02 08:12] LABS: Anion Gap 7 mmol/L; Blood Urea Nitrogen 6 mg/dL (7-17); Calcium 9.2 mg/dL (8.4-10.2); Carbon Dioxide 28 mmol/L (22-30); Chloride 104 mmol/L (98-107); Glucose 89 mg/dL (74-99); Sodium 139 mmol/L (137-145)
[2017-05-02] MEDS: HEPARIN SODIUM,PORCINE 5,000 UNIT/ML 1 ML VIAL SQ SCH ×2 (08:56→20:04)
[2017-05-02] MEDS: PANTOPRAZOLE 40 MG TABLET PO SCH (08:56)
[2017-05-02 09:26] LABS: Erythrocyte Sedimentation Rate 34 mm/hr (0-20)
[2017-05-02] MEDS: ERTAPENEM 1 GM in SODIUM CHLORIDE 0.9% 50 ML IVPB SCH (11:57)
[2017-05-02 12:12] LABS: HIV AB P24 Non-Reactive (Non-Reactive); HIV P24 AG Non-Reactive (Non-Reactive)
[2017-05-02] MEDS ORDERED: MORPHINE ORAL SOLN 10 MG/5 ML CUP PO PRN (13:25)
[2017-05-02] MEDS ORDERED: LORazepam 2 MG/ML INJ IV PRN (16:00)
[2017-05-02] MEDS ORDERED: LORazepam 2 MG/ML INJ IV ONE (17:00)
--- NOTE | 2017-05-02 19:07 | PN ---
PROGRESS NOTE DATE OF SERVICE: 05/02/2017 This 36-year-old woman who was admitted with submandibular and submental cellulitis is being closely monitored. MRI is pending at this time. No chest pain. No palpitations. No fever. On exam, alert and oriented x3. Pulse 80, blood pressure 134/88, respiration 16, temperature 98.2, pulse ox 98% room air. HEENT: Conjunctivae normal. NECK: No jugular venous distention. Minimal tenderness. CARDIOVASCULAR SYSTEM: S1, S2 muffled. RESPIRATORY SYSTEM: Breath sounds diminished at the bases. No rhonchi. No crackles. ABDOMEN: Soft, non-tender. LEGS: No edema. No swelling. NERVOUS SYSTEM: No focal deficit. LABS: Drug screen shows THC and opiates. Otherwise, IgE is 115. HIV is nonreactive. ASO titer is 56 only. BUN is 6. ASSESSMENT: 1. Recurrent submental and submandibular cellulitis for evaluation. 2. Upper respiratory infection and tonsillitis. 3. History of back pain and degenerative joint disease. 4. History of appendectomy. 5. History of section. 6. History of cholecystectomy. 7. History of cellulitis. 8. History of bipolar. 9. History of nicotine dependence. 10.History of tetrahydrocannabinol. RECOMMENDATIONS AND DISCUSSION: I recommend to continue current medication, continue symptomatic treatment. We will continue the antibiotics and monitor closely. Further recommendations to follow. Closely follow with Infectious Disease. YAN / DREAD: [id number] /
[2017-05-02] MEDS: SODIUM CHLORIDE 0.9% 1,000 ML IV SCH ×2 (19:21→20:05)
--- NOTE | 2017-05-02 22:45 | P.PN ---
Subjective Progress Note Date: 05/02/17 Principal diagnosis: pain submental 36-year-old female presents to the emergency center with a sudden onset of significant pain and discomfort below her chin. It is associated with some thickness to her neck and pain radiating from below her chin to the bilateral jaws. She has some difficulty with swallowing although it is not severe. She has discomfort in the region which also results in headache. It is associated with fever and chill and difficulty swallowing solids at times. She's had this in the past. She required incision and drainage one time when she was very ill. She relates in the past her throat is actually close quite a bit because of the swelling which is why she sought care because she didn't want to become ill again like she had in the past. He has noted she feels that she has a fever and chill she is not having rigors. She's had no weight loss. She has no trauma to the area she denies a severe mouth pain. She's had no recent dental work. Does not complaining any significant tooth pains. Denies any new sinus problems. She's had no recent trauma. 05/02/2017 patient is now much improved. She is pleased by the reduction of the pain swelling erythema to the tissue below her chin into the bilateral neck. She is swallowing well with no difficulties. She has no further fever or chills. Objective - Vital Signs Vital signs: Vital Signs Temp 98.4 F 05/02/17 21:50 Pulse 97 05/02/17 21:50 Resp 16 05/02/17 21:50 BP 130/72 05/02/17 21:50 Pulse Ox 98 05/02/17 21:50 Intake & Output 05/02/17 05/02/17 05/03/17 06:59 18:59 06:59 Intake Total 1350 190 Balance 1350 190 Intake: Intake, IV Titration 160 190 Amount Ertapenem 1 gm In Sodium 160 50 Chloride 0.9% 50 ml @ 100 mls/hr IVPB Q24H NOE Rx# :[id number] Sodium Chloride 0.9% 1, 140 000 ml @ 20 mls/hr IV . Q24H NOE Rx#:[id number] Oral 1190 Other: Voiding Method Toilet Toilet # Voids 2 1 - Exam HEENT: Anicteric conjunctiva are pink and moist nasal mucosa grossly intact without significant lesions, there is no thrush. Neck: The neck is supple there is no thyromegaly. No significant swelling of the submental area is generally resolved. The thickened tissue in the neck anterior aspect with evidence of some lymphadenopathy has all showed marked improvement is much less tender. Erythematous skin is improved. No other lesions are seen. Lungs: Good bilateral air entry without significant crackles or wheezing. There is no significant bronchial sounds. There is no egophony or dullness. Heart: Regular rate and rhythm with an audible S1-S2, no S3 no S4. There is no significant murmur click or rub, PMI was nondisplaced. Abdomen: Obese Positive bowel sounds soft and nontender without palpable masses or organomegaly. There was no guarding or rebound. Extremities: The upper extremities have excellent pulses they are symmetric, no significant petechiae or telangiectasia. No splinter hemorrhages were noted. The lower extremities are free from significant edema. The peripheral pulses were 2+ and symmetric. Neuro: Awake alert oriented to person place and time. There are no acute new gross focal sensory motor deficits. - Labs CBC & Chem 7: 05/02/17 07:28 05/02/17 07:28 Labs: Abnormal Lab Results - Last 24 Hours (Table) 05/02/17 05/02/17 05/02/17 Range/Units 07:28 07:28 07:28 WBC 11.5 H (3.8-10.6) k/uL Neutrophils # 8.3 H (1.3-7.7) k/uL ESR 34 H (0-20) mm/hr BUN 6 L (7-17) mg/dL IgE 115.00 H (0.00-114.00) IU/mL Microbiology - Last 24 Hours (Table) 04/29/17 17:19 Blood Culture - Preliminary Blood No Growth after 72 hours Laboratory Results WBC 11.5 k/uL (3.8-10.6) H 05/02/17 07:28 RBC 4.79 m/uL (3.80-5.40) 05/02/17 07:28 Hgb 12.8 gm/dL (11.4-16.0) 05/02/17 07:28 Hct 39.9 % (34.0-46.0) 05/02/17 07:28 MCV 83.2 fL (80.0-100.0) 05/02/17 07:28 MCH 26.7 pg (25.0-35.0) 05/02/17 07:28 MCHC 32.1 g/dL (31.0-37.0) 05/02/17 07:28 RDW 13.7 % (11.5-15.5) 05/02/17 07:28 Plt Count 288 k/uL (150-450) 05/02/17 07:28 Neutrophils % 72 % 05/02/17 07:28 Lymphocytes % 20 % 05/02/17 07:28 Monocytes % 4 % 05/02/17 07:28 Eosinophils % 2 % 05/02/17 07: Basophils % 0 % 05/02/17 07:28 Neutrophils # 8.3 k/uL (1.3-7.7) H 05/02/17 07:28 Lymphocytes # 2.3 k/uL (1.0-4.8) 05/02/17 07: Monocytes # 0.5 k/uL (0-1.0) 05/02/17 07:28 Eosinophils # 0.3 k/uL (0-0.7) 05/02/17 07:28 Basophils # 0.0 k/uL (0-0.2) 05/02/17 07:28 Hypochromasia Slight 04/30/17 06:50 ESR 34 mm/hr (0-20) H 05/02/17 07:28 Sodium 139 mmol/L (137-145) 05/02/17 07:28 Potassium 4.0 mmol/L (3.5-5.1) 05/02/17 07:28 Chloride 104 mmol/L (98-107) 05/02/17 07:28 Carbon Dioxide 28 mmol/L (22-30) 05/02/17 07:28 Anion Gap 7 mmol/L 05/02/17 07:28 BUN 6 mg/dL (7-17) L 05/02/17 07:28 Creatinine 0.70 mg/dL (0.52-1.04) 05/02/17 07:28 Est GFR (MDRD) Af Amer >60 (>60 ml/min/1.73 sqM) 05/02/17 07:28 Est GFR (MDRD) Non-Af >60 (>60 ml/min/1.73 sqM) 05/02/17 07:28 Glucose 89 mg/dL (74-99) 05/02/17 07:28 Calcium 9.2 mg/dL (8.4-10.2) 05/02/17 07:28 Total Bilirubin 0.3 mg/dL (0.2-1.3) 04/30/17 06:50 AST 14 U/L (14-36) 04/30/17 06:50 ALT 27 U/L (9-52) 04/30/17 06:50 Alkaline Phosphatase 86 U/L (38-126) 04/30/17 06:50 C-Reactive Protein 20.4 mg/L (<10.0) H 05/01/17 06:50 Total Protein 5.5 g/dL (6.3-8.2) L 04/30/17 06:50 Albumin 3.0 g/dL (3.5-5.0) L 04/30/17 06:50 TSH 3.460 mIU/L (0.465-4.680) 05/01/17 06:50 Urine Color Light Yellow 05/01/17 17:50 Urine Appearance Clear (Clear) 05/01/17 17:50 Urine pH 7.5 (5.0-8.0) 05/01/17 17:50 Ur Specific [place] 1.005 (1.001-1.035) 05/01/17 17:50 Urine Protein Negative (Negative) 05/01/17 17:50 Urine Glucose (UA) Negative (Negative) 05/01/17 17:50 Urine Ketones Negative (Negative) 05/01/17 17:50 Urine Blood Moderate (Negative) H 05/01/17 17:50 Urine Nitrite Negative (Negative) 05/01/17 17:50 Urine Bilirubin Negative (Negative) 05/01/17 17:50 Urine Urobilinogen <2.0 mg/dL (<2.0) 05/01/17 17:50 Ur Leukocyte Esterase Negative (Negative) 05/01/17 17:50 Urine RBC 108 /hpf (0-5) H 05/01/17 17:50 Urine WBC 2 /hpf (0-5) 05/01/17 17:50 Ur Squamous Epith Cells 1 /hpf (0-4) 05/01/17 17:50 Calcium Oxalate Crystal Moderate /hpf (None) H 05/01/17 17:50 Urine Mucus Rare /hpf (None) H 05/01/17 17:50 Urine Opiates Screen Detected (NotDetected) H 05/01/17 17:50 Ur Oxycodone Screen Not Detected (NotDetected) 05/01/17 17:50 Urine Methadone Screen Not Detected (NotDetected) 05/01/17 17:50 Ur Propoxyphene Screen Not Detected (NotDetected) 05/01/17 17:50 Ur Barbiturates Screen Not Detected (NotDetected) 05/01/17 17:50 U Tricyclic Antidepress Not Detected (NotDetected) 05/01/17 17:50 Ur Phencyclidine Scrn Not Detected (NotDetected) 05/01/17 17:50 Ur Amphetamines Screen Not Detected (NotDetected) 05/01/17 17:50 U Methamphetamines Scrn Not Detected (NotDetected) 05/01/17 17:50 U Benzodiazepines Scrn Not Detected (NotDetected) 05/01/17 17:50 Urine Cocaine Screen Not Detected (NotDetected) 05/01/17 17:50 U Marijuana (THC) Screen Detected (NotDetected) H 05/01/17 17:50 IgG 820.0 mg/dL (700.0-1600.0) 05/02/17 07:28 IgA 109.0 mg/dL (60.0-350.0) 05/02/17 07:28 IgM 105.0 mg/dL (40.0-280.0) 05/02/17 07:28 IgE 115.00 IU/mL (0.00-114.00) H 05/02/17 07:28 JOSH Screen NEGATIVE (NEGATIVE) 05/02/17 07:28 HIV-1 Antibody Non-Reactive (Non-Reactive) 05/02/17 07:28 HIV Ag/Ab Interpret (()) 05/02/17 07:28 HIV p24 Antibody Non-Reactive (Non-Reactive) 05/02/17 07:28 HIV-2 Antibody Non-Reactive (Non-Reactive) 05/02/17 07:28 HIV P24 Antigen Non-Reactive (Non-Reactive) 05/02/17 07:28 Anti-Streptolysin O Ab 56 IU/mL (0-200) 05/02/17 07:28 Microbiology 04/29/17 17:19 Blood Blood Culture - Preliminary No Growth after 72 hours Assessment and Plan (1) Submandibular gland infection Narrative/Plan: 36-year-old female presents to Hospital sitting in pain swelling and discomfort to the submental area as well as to the anterior aspect of the neck to the temporomandibular joints bilaterally. The patient has a history of prior infection in this area one time even requiring a surgical incision and drainage she was having significant abscess that actually interfered with her ability to swallow. She sought care before became severe. As noted she does have a significant swelling and tenderness to this region as well as lymphadenopathy to the anterior cervical chain bilaterally. Patient evaluated for underlying infectious etiology. Antimicrobial therapy will be altered in that she has been on oral outpatient antibiotic therapy with Augmentin and now on Unasyn without significant improvement, will transition to ertapenem or waiting for further data. The location anatomically would make concern to oral cavity etiology for the infection. Underlying viral process of concern and she is willing for HIV testing. We'll also do official Denisse- Olguin viral testing, in that Monospot is not as sensitive and specific. Immunoglobulin titers will be obtained as well as basic autoimmune workup. With pain control she is improved. She will benefit from an ENT consult to evaluate her posterior pharynx to ensure that there is no disease that cannot be evaluated externally. She does have a leukocytosis which she relates has occurred in the past also. Blood culture is pending. 05/02/2017 reveals the patient is now markedly improved. She is denying of difficulties such as fevers or chills. The pain and discomfort to the anterior aspect of her neck is almost completely resolved. She is swallowing without any difficulties. Workup so far reveals evidence of a negative HIV, immunoglobulin levels are normal, ASO titer reveals no evidence of recent streptococcal infection. EBV titers are pending. Blood cultures are negative so far. It appears the patient will have an outpatient ENT evaluation after her discharge and should there is no pathology that could not be seen on the mucosal surface, including polyps, cysts, diverticulum or lesions related to chronic viral infections such as HPV. It appears she will be discharged in the morning and will complete a course of Suprax Current Visit: Yes Status: Acute Code(s): K11.20 - SIALOADENITIS, UNSPECIFIED SNOMED Code(s): 50655131 (2) Cellulitis, neck Current Visit: Yes Status: Acute Code(s): L03.221 - CELLULITIS OF NECK SNOMED Code(s): 49444310
[2017-05-03 06:03] LABS: EBV - EA (IgG) 28.1 U/mL (<9.0); EBV - VCA IgM 18.6 U/mL (<36.0)
[2017-05-03] MEDS: ERTAPENEM 1 GM in SODIUM CHLORIDE 0.9% 50 ML IVPB SCH (07:25)
[2017-05-03] MEDS: HEPARIN SODIUM,PORCINE 5,000 UNIT/ML 1 ML VIAL SQ SCH (07:25)
[2017-05-03] MEDS: PANTOPRAZOLE 40 MG TABLET PO SCH (07:25)
[2017-05-03 07:39] VITALS: BP 125/70; PULSE 80; TEMP 97.9
[2017-05-03 08:01] LABS: Basophils % (A) 0 %; Eosinophils # (A) 0.3 k/uL (0-0.7); Eosinophils % (A) 3 %; HCT 43.8 % (34.0-46.0); Lymphocytes # (A) 2.7 k/uL (1.0-4.8); Lymphocytes % (A) 23 %; MCH 26.7 pg (25.0-35.0); MCV 83.5 fL (80.0-100.0); Monocytes # (A) 0.3 k/uL (0-1.0); Monocytes % (A) 3 %; Neutrophils # (A) 8.2 k/uL (1.3-7.7); Neutrophils % (A) 70 %; Platelet Count 320 k/uL (150-450); RBC 5.25 m/uL (3.80-5.40); WBC 11.7 k/uL (3.8-10.6)
[2017-05-03 08:20] LABS: Anion Gap 12 mmol/L; Blood Urea Nitrogen 8 mg/dL (7-17); Calcium 9.3 mg/dL (8.4-10.2); Carbon Dioxide 22 mmol/L (22-30); Chloride 106 mmol/L (98-107); Glucose 90 mg/dL (74-99); Potassium 4.2 mmol/L (3.5-5.1); Sodium 140 mmol/L (137-145)
[2017-05-03 15:41] LABS: C-ANCA <1:20 Titer (<1:20); P-ANCA <1:20 Titer (<1:20)
--- NOTE | 2017-05-04 00:11 | DS ---
DISCHARGE SUMMARY FINAL DIAGNOSES: 1. Recurrent submental and submandibular cellulitis. 2. Upper respiratory infection and tonsillitis. 3. History of back pain and degenerative joint disease. 4. History of appendectomy. 5. History of section. 6. History of cholecystectomy. 7. History of cellulitis. 8. History of bipolar. 9. History of nicotine dependence. 10.History of tetrahydrocannabinol. DISCHARGE DISPOSITION: The patient is discharged in stable condition with guarded prognosis. HISTORY OF PRESENT ILLNESS: This 36-year-old woman with past medical history of multiple medical problems was admitted with recurrent submandibular and submental cellulitis. IV antibiotics. Dr. Horne saw the patient. the patient's eyes. Get ENT evaluation also as outpatient. On exam, vitals are stable. CARDIOVASCULAR: S1 and S2. ABDOMEN: Soft. NERVOUS SYSTEM: No focal deficits. NECK: Minimal tenderness present. No evidence of cellulitis. DISCHARGE ADVICE: 1. Diet is cardiac. 2. Activity limited until followup. 3. Followup with Dr. Pratt in 2-3 days. 4. Followup with Dr. Jamison in 2 weeks. 5. Followup with Infectious Disease as advised. MEDICATIONS: 1. Tylenol 650 q.6h p.r.n. 2. Suprax 500 mg p.o. daily for 1 week. 3. Multivitamins 1 p.o. daily. MMODL / IJN: [id number] / MTDD
== END 2017-05-03 09:50 | disposition home or self-care (01) | DRG 158 ==
LOC: EC 16:24 → 5MS5E 19:24
PROVIDERS: ADMIT Internal Medicine; ATTEND Internal Medicine
DX: K12.2 Cellulitis and abscess of mouth (principal); L03.221 Cellulitis of neck; R13.10 Dysphagia, unspecified; M54.9 Dorsalgia, unspecified; J03.90 Acute tonsillitis, unspecified; M19.91 Primary osteoarthritis, unspecified site; K11.20 Sialoadenitis, unspecified; F17.200 Nicotine dependence, unspecified, uncomplicated; Z90.49 Acquired absence of other specified parts of digestive tract; Z88.1 Allergy status to other antibiotic agents
CPT/HCPCS: 36415; 70491; 80048; 80053; 80306; 81001; 82784; 82785; 84443; 85025; 85652; 86038; 86060; 86140; 86255; 86663; 86664; 86665; 87040; 87390; 96361; 96365; 96375; 99284

== ENCOUNTER 2017-05-20 14:39 | Observation (INO) | payer OTHER ==
[2017-05-20] MEDS ORDERED: SODIUM CHLORIDE 0.9% 1,000 ML IV STA (15:21)
[2017-05-20] MEDS ORDERED: KETOROLAC 30 MG/ML 1 ML VIAL IVP STA (15:22)
[2017-05-20] MEDS ORDERED: AMPICILLIN-SULBACTAM 3 GM in SODIUM CHLORIDE 0.9% 100 ML IVPB STA (15:22)
--- NOTE | 2017-05-20 15:29 | ED ---
ENT HPI - General Chief complaint: ENT Stated complaint: Swollen Throat Time Seen by Provider: 05/20/17 15:00 Source: patient Mode of arrival: ambulatory Limitations: no limitations - Related Data Home Medications Medication Instructions Recorded Confirmed Ibuprofen [Motrin] 800 mg PO Q6HR PRN 04/29/17 05/20/17 Allergies Allergy/AdvReac Type Severity Reaction Status Date / Time unknown antibiotic Allergy Rash/Hives Uncoded 05/20/17 17:28 Review of Systems ROS Statement: Those systems with pertinent positive or pertinent negative responses have been documented in the HPI. ROS Other: All systems not noted in ROS Statement are negative. Past Medical History Past Medical History: No Reported History Additional Past Medical History / Comment(s): hx back pain, cellulitis in throat History of Any Multi-Drug Resistant Organisms: None Reported Past Surgical History: Appendectomy, Section, Cholecystectomy, Tubal Ligation Additional Past Surgical History / Comment(s): surgery to throat for cellulitis, Past Anesthesia/Blood Transfusion Reactions: No Reported Reaction Past Psychological History: Bipolar Smoking Status: Current some day smoker Past Alcohol Use History: None Reported Past Drug Use History: None Reported, Marijuana - Past Family History Father Family Medical History: Diabetes Mellitus General Exam Limitations: no limitations Course Vital Signs 05/20/17 05/20/17 14:43 16:43 Temperature 98.0 F Pulse Rate 92 90 Respiratory 20 16 Rate Blood Pressure 146/66 138/84 O2 Sat by Pulse 98 98 Oximetry - Reevaluation(s) Reevaluation #1: 05/20/17 15:29 I did personally do a [id number] evaluation patient did discuss findings with her. Patient will be admitted with IV antibiotics and consultation by ENT. Medical Decision Making - Lab Data Result diagrams: 05/21/17 06:37 05/21/17 06:37 Lab Results 05/20/17 05/20/17 05/20/17 Range/Units 15:37 15:37 15:37 WBC 16.8 H (3.8-10.6) k/uL RBC 4.95 (3.80-5.40) m/uL Hgb 13.5 (11.4-16.0) gm/dL Hct 40.3 (34.0-46.0) % MCV 81.4 (80.0-100.0) fL MCH 27.2 (25.0-35.0) pg MCHC 33.4 (31.0-37.0) g/dL RDW 14.0 (11.5-15.5) % Plt Count 366 (150-450) k/uL Neutrophils % 81 % Lymphocytes % 12 % Monocytes % 3 % Eosinophils % 2 % Basophils % 0 % Neutrophils # 13.6 H (1.3-7.7) k/uL Lymphocytes # 2.1 (1.0-4.8) k/uL Monocytes # 0.5 (0-1.0) k/uL Eosinophils # 0.4 (0-0.7) k/uL Basophils # 0.1 (0-0.2) k/uL ESR 76 H (0-20) mm/hr Sodium 141 (137-145) mmol/L Potassium 4.4 (3.5-5.1) mmol/L Chloride 107 (98-107) mmol/L Carbon Dioxide 23 (22-30) mmol/L Anion Gap 11 mmol/L BUN 7 (7-17) mg/dL Creatinine 0.55 (0.52-1.04) mg/dL Est GFR (CKD-EPI)AfAm >90 (>60 ml/min/1.73 sqM) Est GFR (CKD-EPI)NonAf >90 (>60 ml/min/1.73 sqM) Glucose 107 H (74-99) mg/dL Calcium 9.5 (8.4-10.2) mg/dL C-Reactive Protein (<10.0) mg/L 05/20/17 Range/Units 15:37 WBC (3.8-10.6) k/uL RBC (3.80-5.40) m/uL Hgb (11.4-16.0) gm/dL Hct (34.0-46.0) % MCV (80.0-100.0) fL MCH (25.0-35.0) pg MCHC (31.0-37.0) g/dL RDW (11.5-15.5) % Plt Count (150-450) k/uL Neutrophils % % Lymphocytes % % Monocytes % % Eosinophils % % Basophils % % Neutrophils # (1.3-7.7) k/uL Lymphocytes # (1.0-4.8) k/uL Monocytes # (0-1.0) k/uL Eosinophils # (0-0.7) k/uL Basophils # (0-0.2) k/uL ESR (0-20) mm/hr Sodium (137-145) mmol/L Potassium (3.5-5.1) mmol/L Chloride (98-107) mmol/L Carbon Dioxide (22-30) mmol/L Anion Gap mmol/L BUN (7-17) mg/dL Creatinine (0.52-1.04) mg/dL Est GFR (CKD-EPI)AfAm (>60 ml/min/1.73 sqM) Est GFR (CKD-EPI)NonAf (>60 ml/min/1.73 sqM) Glucose (74-99) mg/dL Calcium (8.4-10.2) mg/dL C-Reactive Protein 69.5 H (<10.0) mg/L Disposition Clinical Impression: Submandibular space infection Disposition: ADMITTED IP TO THIS HOSP Condition: Stable
--- NOTE | 2017-05-20 15:42 | ED ---
General Adult HPI - General Chief complaint: ENT Stated complaint: Swollen Throat Time Seen by Provider: 05/20/17 15:00 Source: patient, RN notes reviewed Mode of arrival: ambulatory Limitations: no limitations - History of Present Illness Initial comments: Patient 36-year-old female who presents emergency room today with a chief complaint of swelling to her neck. Patient does admit that symptoms began again 3 days ago. She states that she's had some symptoms in the past most recently just 3 weeks ago where she was admitted to the hospital. She states she was seen by infectious disease placed on different antibiotics. She states she was discharged home to follow-up the ENT. She states she was unable to see ENT locally in town due to insurance problems. She does admit that she has an appointment with an ENT out of [place] and 3 days. She states the swelling got worse and is worse was just 3 weeks ago. She states becoming more difficult to swallow. Patient does admit to increased pain. She states is the fourth time she's had a similar infection. She states she had to have this surgically drained once. Patient does admit that she had a recent CAT scan with this admission. Denies any other complaints symptoms at this time. Patient denies any recent fever, chills, shortness of breath, chest pain, back pain, abdominal pain, nausea or vomiting, headaches or visual changes, or any other complaints. - Related Data Home Medications Medication Instructions Recorded Confirmed Ibuprofen [Motrin] 800 mg PO Q6HR PRN 04/29/17 05/20/17 Allergies Allergy/AdvReac Type Severity Reaction Status Date / Time unknown antibiotic Allergy Rash/Hives Uncoded 04/29/17 16:31 Review of Systems ROS Statement: Those systems with pertinent positive or pertinent negative responses have been documented in the HPI. ROS Other: All systems not noted in ROS Statement are negative. Past Medical History Past Medical History: No Reported History Additional Past Medical History / Comment(s): hx back pain, cellulitis in throat History of Any Multi-Drug Resistant Organisms: None Reported Past Surgical History: Appendectomy, Section, Cholecystectomy, Tubal Ligation Additional Past Surgical History / Comment(s): surgery to throat for cellulitis, Past Anesthesia/Blood Transfusion Reactions: No Reported Reaction Past Psychological History: Bipolar Smoking Status: Current some day smoker Past Alcohol Use History: None Reported Past Drug Use History: None Reported, Marijuana General Exam - General Exam Comments Initial Comments: General: The patient is awake and alert, in no distress, and does not appear acutely ill. Eye: Pupils are equal, round and reactive to light, extra-ocular movements are intact. No nystagmus. There is normal conjunctiva bilaterally. No signs of icterus. Ears, nose, mouth and throat: Patient does have submandibular swelling midline. Uvula is midline patient tolerating oral secretions. No dental pain on palpation. No oral abscess. The area of swelling is palpated is firm. Nonfluctuant. Neck: The neck is supple, there is no tenderness or JVD. Cardiovascular: There is a regular rate and rhythm. No murmur, rub or gallop is appreciated. Respiratory: Lungs are clear to auscultation, respirations are non-labored, breath sounds are equal. No wheezes, stridor, rales, or rhonchi. Musculoskeletal: Normal ROM, no tenderness. Strength 5/5. Sensation intact. Pulses equal bilaterally 2+. Neurological: A&O x 3. CN II-XII intact, There are no obvious motor or sensory deficits. Coordination appears grossly intact. Speech is normal. Skin: Skin is warm and dry and no rashes or lesions are noted. Psychiatric: Cooperative, appropriate mood & affect, normal judgment. Limitations: no limitations Course Vital Signs 05/20/17 14:43 Temperature 98.0 F Pulse Rate 92 Respiratory 20 Rate Blood Pressure 146/66 O2 Sat by Pulse 98 Oximetry Medical Decision Making - Medical Decision Making Patient's previous reports were reviewed from previous admission. Head CT was performed which was unremarkable. Patient's labs today show 16,000 white count. Her on antibiotics of Unasyn here in emergency room. Patient will be admitted with consult to along with infectious disease. - Lab Data Result diagrams: 05/20/17 15:37 Lab Results 05/20/17 Range/Units 15:37 WBC 16.8 H (3.8-10.6) k/uL RBC 4.95 (3.80-5.40) m/uL Hgb 13.5 (11.4-16.0) gm/dL Hct 40.3 (34.0-46.0) % MCV 81.4 (80.0-100.0) fL MCH 27.2 (25.0-35.0) pg MCHC 33.4 (31.0-37.0) g/dL RDW 14.0 (11.5-15.5) % Plt Count 366 (150-450) k/uL Neutrophils % 81 % Lymphocytes % 12 % Monocytes % 3 % Eosinophils % 2 % Basophils % 0 % Neutrophils # 13.6 H (1.3-7.7) k/uL Lymphocytes # 2.1 (1.0-4.8) k/uL Monocytes # 0.5 (0-1.0) k/uL Eosinophils # 0.4 (0-0.7) k/uL Basophils # 0.1 (0-0.2) k/uL Disposition Clinical Impression: Submandibular space infection Disposition: ADMITTED IP TO THIS HOSP Condition: Stable Referrals: Braeden Pratt MD [Primary Care Provider] - 1-2 days Time of Disposition: 16:06
[2017-05-20 15:52] LABS: Basophils # (A) 0.1 k/uL (0-0.2); Basophils % (A) 0 %; Eosinophils # (A) 0.4 k/uL (0-0.7); Eosinophils % (A) 2 %; HCT 40.3 % (34.0-46.0); HGB 13.5 gm/dL (11.4-16.0); Lymphocytes # (A) 2.1 k/uL (1.0-4.8); Lymphocytes % (A) 12 %; MCH 27.2 pg (25.0-35.0); MCHC 33.4 g/dL (31.0-37.0); MCV 81.4 fL (80.0-100.0); Mean Platelet Volume 6.9; Monocytes # (A) 0.5 k/uL (0-1.0); Monocytes % (A) 3 %; Neutrophils # (A) 13.6 k/uL (1.3-7.7); Neutrophils % (A) 81 %; Platelet Count 366 k/uL (150-450); RBC 4.95 m/uL (3.80-5.40); WBC 16.8 k/uL (3.8-10.6)
[2017-05-20 16:00] LABS: Anion Gap 11 mmol/L; Blood Urea Nitrogen 7 mg/dL (7-17); Calcium 9.5 mg/dL (8.4-10.2); Carbon Dioxide 23 mmol/L (22-30); Chloride 107 mmol/L (98-107); Glucose 107 mg/dL (74-99); Potassium 4.4 mmol/L (3.5-5.1); Sodium 141 mmol/L (137-145)
[2017-05-20] MEDS ORDERED: NALOXONE 0.4 MG/ML 1 ML VIAL IV PRN (16:06)
[2017-05-20] MEDS ORDERED: ACETAMINOPHEN TAB 325 MG TAB PO PRN (16:06)
[2017-05-20] MEDS ORDERED: ONDANSETRON 4 MG/2 ML VIAL IVP PRN (16:06)
[2017-05-20] MEDS ORDERED: MORPHINE SULFATE 4 MG/ML SYRINGE IV PRN (16:06)
[2017-05-20] MEDS ORDERED: MORPHINE SULFATE 4 MG/ML SYRINGE IV STA (16:13)
[2017-05-20 17:56] VITALS: BMI 37.8
[2017-05-20] MEDS ORDERED: DIAZEPAM 5 MG TAB PO PRN (21:03)
[2017-05-20] MEDS ORDERED: IBUPROFEN 400 MG TAB PO PRN (21:05)
[2017-05-20] MEDS ORDERED: ALPRAZolam 0.25 MG TAB PO PRN (21:05)
[2017-05-20] MEDS: MORPHINE ORAL SOLN 10 MG/5 ML CUP PO PRN (22:11)
[2017-05-20] MEDS: KETOROLAC 30 MG/ML 1 ML VIAL IVP PRN (22:17)
--- NOTE | 2017-05-20 22:43 | HP ---
HISTORY AND PHYSICAL DATE OF SERVICE: 05/20/2017 CHIEF COMPLAINT: Neck swelling. HISTORY OF PRESENT ILLNESS: This 36-year-old woman with a past medical history of multiple medical problems, including back pain, section, cellulitis, bipolar, being followed by Dr. Pratt in the outpatient setting was recently admitted with recurrence of submandibular cellulitis. The patient treated with antibiotics. Infectious Disease saw the patient. Patient is on Suprax 500 mg p.o. daily for 1 week. The patient improved significantly. She went home. Currently the patient noted increased pain and swelling of the neck area and the patient came to [facility] and was admitted for further evaluation and treatment. The patient had a previous soft tissue CT scan which was negative at this time. There is no history of fever, rigors. No history of headache, loss of consciousness or seizures. No dysphagia. PAST MEDICAL HISTORY: History of recurrent submandibular cellulitis and infection, abscess drainage, history of section, bipolar. MEDICATION PRIOR TO ADMISSION: Include home medication Motrin 800 mg every 6 hours p.r.n. ALLERGIES: UNKNOWN ANTIBIOTIC. FAMILY HISTORY: History of diabetes mellitus in the family. SOCIAL HISTORY: History of TIAs, history of smoking. REVIEW OF SYSTEMS: ENT: As mentioned earlier. CARDIOVASCULAR: No angina, palpitations. RESPIRATORY: No cough or hemoptysis. GI: No nausea or vomiting. : No dysuria. NERVOUS: No numbness or weakness. ALLERGY/IMMUNOLOGY: No asthma or hay fever. MUSCULOSKELETAL: As mentioned earlier. HEMATOLOGY/ONCOLOGY: No history of anemia. ENDOCRINE: No history of diabetes, hypothyroidism. CONSTITUTIONAL: As mentioned earlier. DERMATOLOGY: Negative. RHEUMATOLOGY: Negative. PSYCHIATRY: As mentioned earlier. PHYSICAL EXAMINATION: Alert and oriented x3. Pulse 79, blood pressure 111/73, respirations 16, temperature 98.6, pulse ox 96% on room air. HEENT: Conjunctivae normal. Oral mucosa moist. NECK: Significant swelling and some tenderness in the submental area present, usually firm to hard with no fluctuations. No erythema. No sinus drainage. No lymph node enlargement. CARDIOVASCULAR: S1, S2 muffled. RESPIRATORY: Breath sounds diminished in the bases. No rhonchi. No crackles. ABDOMEN: Soft, nontender. No mass palpable. LEGS: No edema. No swelling. NERVOUS SYSTEM: Higher functions as mentioned earlier. Moves all 4 limbs. No focal motor or sensory deficits. LYMPHATIC: No lymphadenopathy in neck or axillae. SKIN: No ulcer, rash or bleeding. LABS: WBC 16, hemoglobin is 13.5. ASSESSMENT: 1. Submental swelling with possibly abscess/cyst, recurrent, rule out thyroglossal cyst. 2. History of appendectomy. 3. History of cholecystectomy. 4. History of history of bipolar. 5. History of degenerative joint disease. 6. History of tonsillitis. 7. History of nicotine dependence. 8. History of THC. 9. History of section. RECOMMENDATIONS AND DISCUSSION: In this 36-year-old woman who presented with multiple complex medical issues, we will monitor the patient closely, continue the current medical management and symptomatic treatment. Otherwise at this time, I would recommend broad-spectrum IV antibiotics. Unasyn has been initiated. I would also recommend infectious disease consultation. Otherwise, I would also recommend an MRI of the neck. DVT prophylaxis. See orders for further details. The patient apparently also had an ENT appointment scheduled in [place] on Tuesday. The local ENT also has been contacted. Prognosis guarded and see staff notes for further information. Further recommendations to follow. A copy of this dictation will be forwarded to Dr. Pratt, who is the primary physician. Discussed with the patient, who understands and agrees. Patient does not have any respiratory difficulties at this time. MMODL / IJN: [id number] /
[2017-05-20] MEDS: AMPICILLIN-SULBACTAM 3 GM in SODIUM CHLORIDE 0.9% 100 ML IVPB SCH (23:51)
[2017-05-21] MEDS: MORPHINE ORAL SOLN 10 MG/5 ML CUP PO PRN ×4 (02:28→21:39)
[2017-05-21] MEDS: AMPICILLIN-SULBACTAM 3 GM in SODIUM CHLORIDE 0.9% 100 ML IVPB SCH ×3 (06:28→17:51)
[2017-05-21] MEDS: KETOROLAC 30 MG/ML 1 ML VIAL IVP PRN ×3 (06:28→18:34)
[2017-05-21] MEDS: PANTOPRAZOLE 40 MG TABLET PO SCH (06:59)
[2017-05-21 07:03] LABS: Basophils % (A) 0 %; Eosinophils # (A) 0.2 k/uL (0-0.7); Eosinophils % (A) 2 %; HCT 37.8 % (34.0-46.0); HGB 12.1 gm/dL (11.4-16.0); Lymphocytes # (A) 1.8 k/uL (1.0-4.8); Lymphocytes % (A) 18 %; MCH 26.6 pg (25.0-35.0); MCV 83.2 fL (80.0-100.0); Mean Platelet Volume 7.1; Monocytes # (A) 0.5 k/uL (0-1.0); Monocytes % (A) 5 %; Neutrophils # (A) 7.5 k/uL (1.3-7.7); Neutrophils % (A) 73 %; Platelet Count 334 k/uL (150-450); RBC 4.54 m/uL (3.80-5.40); WBC 10.2 k/uL (3.8-10.6)
[2017-05-21 07:15] LABS: ALT 33 U/L (9-52); AST 34 U/L (14-36); Albumin 3.3 g/dL (3.5-5.0); Alkaline Phosphatase 101 U/L (38-126); Anion Gap 8 mmol/L; Blood Urea Nitrogen 8 mg/dL (7-17); Calcium 8.7 mg/dL (8.4-10.2); Carbon Dioxide 25 mmol/L (22-30); Chloride 106 mmol/L (98-107); Glucose 90 mg/dL (74-99); Sodium 139 mmol/L (137-145); Total Bilirubin 0.9 mg/dL (0.2-1.3); Total Protein 5.9 g/dL (6.3-8.2)
[2017-05-21] MEDS: HEPARIN SODIUM,PORCINE 5,000 UNIT/ML 1 ML VIAL SQ SCH ×2 (09:00→21:38)
[2017-05-21] MEDS: NICOTINE 14MG/24HR PATCH TRANSDERM SCH (09:00)
[2017-05-21] MEDS ORDERED: SODIUM CHLORIDE 0.9% 1,000 ML IV SCH (12:30)
--- NOTE | 2017-05-21 13:14 | MR ---
EXAMINATION TYPE: MR neck wo/w con DATE OF EXAM: 05/21/2017 COMPARISON: 04/29/2017 CT scan HISTORY: Swelling beneath the chin CONTRAST: Standard multiplanar, multisequence MRI departmental protocol utilizing 10 mL intravenous Gadavist co ntrast. FINDINGS: Airway: Widely patent. No abnormalities. Parotid/submandibular glands: No gross abnormality seen. Carotid/Vascular Structures: Patent and unremarkable. Osseous Structures: Negative. NECK SOFT TISSUES: There is subcutaneous edema beneath the level of the chair within the soft tissues . There is a tiny rounded area of abnormal signal measuring approximately 8 mm. This could represent a tiny abscess or thyroglossal duct cyst correlate clinically. IMPRESSION: There is subcutaneous edema beneath the level of the chair within the soft tissues. Correlate for jose lulitis. There is a tiny rounded area of abnormal signal measuring approximately 8 mm. This could represent a tiny abscess or thyroglossal duct cyst, correlate clinically.
--- NOTE | 2017-05-21 14:23 | CONS ---
CONSULTATION DATE OF SERVICE: 05/21/2017. REASON FOR CONSULTATION: Some mandibular infection. HISTORY OF PRESENT ILLNESS: The patient is a 36-year-old female who seems to have a problem with recurrent swelling, redness and pain to the neck area below the chin. She did have at one time I and D done on the same site at [facility]; however, the patient is not sure about the antibiotic or the culture. She was recently admitted to this facility about 3 weeks ago with the same symptoms. At that time the patient did have a CT that was negative for any acute finding. She was treated with IV Invanz and subsequent discharge on Bactrim. The patient did mention that with taking antibiotic, the swelling has gone down. However, 3-4 days after stopping the antibiotic, the swelling and redness has come back. She is complaining of pain in the neck area just below the chin, more of a throbbing pain almost 6 to 7/10, and no radiation with associated swelling and redness. Some difficulty swallowing. The patient did have some chills but denies any high-grade fever. With these symptoms, the patient has been evaluated by the ER physician. The patient workup did include elevated white count 16.8. CRP was 69.5. Blood culture obtained which is currently pending. The patient was started on Unasyn 3 g every 6 hours admitted to the hospital. Infectious Disease was consulted for further recommendation regarding antibiotic therapy. The patient 2 with no documented fever and white count showing downward trend as of this morning. The patient seemed to be emotional and crying with the pain. No difficulty breathing. No nausea, no vomiting. No abdominal pain and no diarrhea. REVIEW OF SYSTEMS: CONSTITUTIONAL: Positive for weakness and chills. No high-grade fever. EYES: No complaint. ENT: As per HPI. RESPIRATORY: No complaint. CARDIOVASCULAR: No complaint. GENITOURINARY: No complaint. GASTROINTESTINAL: No complaint. MUSCULOSKELETAL: No complaint. INTEGUMENTARY: No complaint. PSYCHOLOGICAL: No complaint. ENDOCRINE: No complaint. NEUROLOGICAL: No complaint. PAST MEDICAL HISTORY: Significant for recurrent swelling and redness of the neck area as mentioned above. PAST SURGICAL HISTORY: Appendectomy , tonsillectomy, tubal ligation and I and D of the neck abscess. PSYCHOLOGICAL HISTORY: Positive for bipolar. SOCIAL HISTORY: Current everyday smoker. Did admit to marijuana use. No drinking. FAMILY HISTORY: No pertinent findings noticed. ALLERGIES: No known drug allergies. MEDICATION: Medications include the patient is currently on Tylenol, [place], Xanax, Unasyn 3 g q.6 hours, Valium, heparin, Motrin, Toradol, Narcan nicotine patch, Zofran, Protonix. EXAMINATION: Blood pressure is 115/57 with a pulse of 81, temperature of 98.7. She is 98% on room air. General description is a middle-aged female up in the bed in no distress. No tachypnea or accessory muscle respiration use. HEENT shows no pallor or scleral icterus. Oral mucosa membrane is moist. No erythema or thrush. Neck examination did show a swelling in the midline just below the chin, which is tender to touch and no redness was noticed or warmth. No lymphadenopathy. LUNGS: Unlabored breathing clear to auscultation anteriorly. No wheeze or crackle. HEART: S1, S2. Regular rate and rhythm. ABDOMEN: Soft, no tenderness. No guarding or rigidity. EXTREMITIES: No edema feet. SKIN EXAMINATION: No rash or mass palpable. NEUROLOGICAL: Patient is awake, alert, oriented x3. Mood and affect normal. LABS: Hemoglobin is 12.1, white count was 15.8 with a BUN of 8, creatinine 0.60. Electrolytes have been normal. Liver enzymes are normal. An MRI has been done, which is currently pending report. Blood culture obtained which are currently negative. DIAGNOSTIC IMPRESSION AND PLAN: Patient admitted to the hospital with recurrent pain, swelling and chills of the anterior neck area just below the chin with concern for possible infected thyroglossal cyst. The patient did have a previous I and D of this area, but apparently the cyst was not removed with the likely organism need to be covered would be the oral artie, especially both the aerobes and anaerobes. PLAN: 1. Recommend keep the patient on Unasyn 3 g q.6 hours for another 24 hours. 2. The patient would likely need ENT evaluation and surgical resection of this thyroglossal cyst to prevent recurrent infection of it. 3. We will follow up on the clinical condition as well as culture to further adjust medication if needed. Thank you for this consultation. Will follow this patient along with you. MMODL / IJN: [id number] /
--- NOTE | 2017-05-21 15:17 | PN ---
PROGRESS NOTE DATE OF SERVICE: 05/21/2017. This 36-year-old woman who was admitted with neck swelling, had an MRI which showed subcutaneous edema beneath the level of within soft tissue. It showed 8 mm signal showing probably an abscess of the thyroglossal duct cyst. No chest pain. No palpitations. No fever. Infectious Disease is also following the patient closely. Patient is on broad-spectrum IV antibiotics at this time. No chest pain, no palpitations. PHYSICAL EXAMINATION: On exam, alert and oriented x3. Pulse 72, blood pressure 98/63, respiration 18, temperature 97.9, pulse ox 97% on room air. HEENT: Conjunctivae normal. Non-fluctuating mass present in the submental area, which is firm to hard. NECK: ntd CARDIOVASCULAR: S1 and S2 muffled. RESPIRATORY; Breath sounds diminished at the bases. No rhonchi, no crackles. Abdomen is soft, nontender. LEGS: No edema, no swelling. NERVOUS SYSTEM: No focal deficits. LABS: WBC 10.2. ASSESSMENT: 1. Submental swelling and possibly abscess or thyroglossal cyst recurrent, status post MRI. 2. History of appendectomy. 3. History of cholecystectomy. 4. History of bipolar history. 5. Degenerative joint disease. 6. History of tonsillitis. 7. History of nicotine dependence. 8. History of THC. 9. History of section. RECOMMENDATIONS AND DISCUSSION: Recommend to continue current medications and symptomatic treatment. MRI evaluated and discussed with Infectious Disease. Continue the broad-spectrum IV antibiotics. Please note, the patient has an appointment with ENT physician in [place] on Tuesday, which the local ENT also recommending to follow with them as well. Otherwise we will continue the rest of medications and further recommendations to follow. Discussed with the patient. Prognosis guarded. Patient understands and agrees. MMODL / IJN: [id number] / YAMINI
[2017-05-21 15:57] VITALS: RESP 16
[2017-05-21] MEDS: HYDROcodone/APAP 5-325MG 1 EACH TAB PO PRN (17:55)
[2017-05-22] MEDS: KETOROLAC 30 MG/ML 1 ML VIAL IVP PRN (00:20)
[2017-05-22] MEDS: HYDROcodone/APAP 5-325MG 1 EACH TAB PO PRN ×3 (00:26→12:08)
[2017-05-22] MEDS: AMPICILLIN-SULBACTAM 3 GM in SODIUM CHLORIDE 0.9% 100 ML IVPB SCH ×3 (00:27→12:03)
[2017-05-22] MEDS: MORPHINE ORAL SOLN 10 MG/5 ML CUP PO PRN (02:49)
[2017-05-22] MEDS: PANTOPRAZOLE 40 MG TABLET PO SCH (06:13)
[2017-05-22 07:22] LABS: Anion Gap 7 mmol/L; Blood Urea Nitrogen 11 mg/dL (7-17); Carbon Dioxide 27 mmol/L (22-30); Chloride 107 mmol/L (98-107); Glucose 106 mg/dL (74-99); Potassium 4.1 mmol/L (3.5-5.1); Sodium 141 mmol/L (137-145)
[2017-05-22] MEDS: HEPARIN SODIUM,PORCINE 5,000 UNIT/ML 1 ML VIAL SQ SCH (09:16)
[2017-05-22] MEDS: NICOTINE 14MG/24HR PATCH TRANSDERM SCH (09:16)
[2017-05-22 12:03] VITALS: BP 111/74; PULSE 72; TEMP 98
--- NOTE | 2017-05-23 08:07 | DS ---
DISCHARGE SUMMARY DATE OF SERVICE: 05/22/2017. FINAL DIAGNOSES: 1. Submental swelling and possibly abscess, recurrent possible thyroglossal cyst infection, status post MRI. 2. History of appendectomy. 3. History of cholecystectomy. 4. History of bipolar history. 5. Degenerative joint disease. 6. History of tonsillitis. 7. History of nicotine dependence. 8. History of THC. 9. History of section. DISCHARGE DISPOSITION: The patient will be discharged in stable condition with guarded prognosis. Discharge cleared by Infectious Disease. Patient is extremely keen on going home. HISTORY OF PRESENT ILLNESS: This 36-year-old woman with a past medical history of multiple medical problems admitted with neck swelling. The possibility of thyroglossal cyst was considered. ENT recommended the patient to follow up with the patient's own ENT doctor with whom the patient has an appointment tomorrow. On exam, vital signs are stable. CARDIOVASCULAR: S1 and S2 muffled. ABDOMEN: Soft. NERVOUS SYSTEM: No focal deficits. Examination of the submental area firm to hard swelling present, which is decreasing now. The patient will be discharged in stable condition with guarded prognosis with the following advice. 1. Diet is cardiac. 2. Activity limited until followup. 3. No smoking. 4. Follow up with primary physician to 1 to 2 days. 5. Follow up with ENT as advised. MEDICATIONS: Medications are: 1. [place] 5 mg q.4 p.r.n. 2. Motrin 400 mg p.r.n. 3. Habitrol 14 4. Antibiotics per ID. MMODL / IJN: [id number] / MTDD
== END 2017-05-22 13:44 | disposition home or self-care (01) ==
LOC: EC 14:39 → 6PED 16:06
PROVIDERS: ADMIT Hospitalist; ATTEND Hospitalist
DX: R22.1 Localized swelling, mass and lump, neck (principal); Z90.49 Acquired absence of other specified parts of digestive tract; F31.9 Bipolar disorder, unspecified; F17.200 Nicotine dependence, unspecified, uncomplicated; M54.9 Dorsalgia, unspecified; M19.90 Unspecified osteoarthritis, unspecified site; Z83.3 Family history of diabetes mellitus; Z88.1 Allergy status to other antibiotic agents; Z86.73 Personal history of transient ischemic attack (TIA), and cerebral infarction without residual deficits
CPT/HCPCS: 96365 ×2; 96375 ×3; 99285; 96361 ×2; 96366 ×3; 96376 ×3; 36415; 80053; 80048 ×2; 85652; 85025 ×2; 86140; 87040; 70543; G0378 ×3; J2270; J1885 ×3; J0295 ×3; A9581

== ENCOUNTER → 2018-06-12 | Outpatient (CLI) | payer OTHER ==
--- NOTE | 2018-06-13 09:10 | MR ---
MR neck with and without contrast HISTORY: Nonhealing open wound under chin Multiplanar multisequence and postcontrast images through the neck following 11.5 cc Gadavist IV. Correlation to prior CT soft tissue neck dated 04/29/2017 and MR neck 05/21/2017 Skull base is stable. Visualized portions of the orbits are normal. No significant sinus disease. Martir ivary glands show symmetric appearance. Midline signal abnormality is present similar to previous exams which extends from the submandibular location where there is a focus of oval low signal on T2, intermediate signal on T1 weighted images m easuring approximately 9 mm in AP dimension with some central increased signal, possibly postinflamma tory granulomatous change. Extending posteriorly from this level there is T2 increased signal extendi ng posteriorly in the midline to the level of the musculature at the floor the mouth. Additionally w ithin the subcutaneous fat there is some focal low signal which is oval measuring 11 mm which shows s ome enhancement following contrast administration at the level the skin, local phlegmon is suspected. IMPRESSION: Local inflammatory change, sinus tract at the level of the floor the mouth as described.
== END | disposition home or self-care (01) ==
LOC: RADMRIMAIN 10:30
PROVIDERS: ATTEND Internal Medicine Infectious Disease
DX: L08.9 Local infection of the skin and subcutaneous tissue, unspecified (principal); L02.11 Cutaneous abscess of neck; Q89.2 Congenital malformations of other endocrine glands; Z86.14 Personal history of Methicillin resistant Staphylococcus aureus infection
CPT/HCPCS: 70543; A9585

== ENCOUNTER 2018-08-10 23:57 | Emergency (ER) | payer OTHER ==
[2018-08-11] MEDS ORDERED: LORazepam 1 MG TAB PO STA (00:29)
[2018-08-11 00:45] VITALS: RESP 18
[2018-08-11 01:02] LABS: Basophils % (A) 0 %; Eosinophils # (A) 0.3 k/uL (0-0.7); Eosinophils % (A) 1 %; HCT 41.7 % (34.0-46.0); HGB 13.2 gm/dL (11.4-16.0); Hypochromasia Slight; Lymphocytes # (A) 1.1 k/uL (1.0-4.8); Lymphocytes % (A) 5 %; MCH 25.6 pg (25.0-35.0); MCHC 31.7 g/dL (31.0-37.0); MCV 80.9 fL (80.0-100.0); Mean Platelet Volume 7.3; Monocytes # (A) 0.4 k/uL (0-1.0); Monocytes % (A) 2 %; Neutrophils # (A) 22.7 k/uL (1.3-7.7); Neutrophils % (A) 93 %; Platelet Count 375 k/uL (150-450); RBC 5.16 m/uL (3.80-5.40); RDW 15.3 % (11.5-15.5); WBC 24.6 k/uL (3.8-10.6)
--- NOTE | 2018-08-11 01:13 | XR ---
EXAM: XR Chest, 2 Views CLINICAL HISTORY: Pain. TECHNIQUE: Frontal and lateral views of the chest. COMPARISON: No relevant prior studies available. FINDINGS: Lungs: No focal consolidation. No evidence of pulmonary edema. Pleural space: No pleural effusion. No pneumothorax. Heart: Unremarkable. No cardiomegaly. Mediastinum: Unremarkable. Bones/joints: Unremarkable. IMPRESSION: No radiographic evidence of acute chest abnormality.
--- NOTE | 2018-08-11 01:16 | ED ---
General Adult HPI - General Source: patient, RN notes reviewed, old records reviewed Mode of arrival: ambulatory Limitations: no limitations <Lionel Adames - Last Filed: 08/11/18 01:38> <Anh Magana - Last Filed: 08/11/18 02:40> - General Chief complaint: ENT Stated complaint: coughing up blood, post op Time Seen by Provider: 08/11/18 00:05 - History of Present Illness Initial comments: 37-year-old female patient with past medical history of appendectomy, cholecystectomy, status post tubal ligation presents to ED with CC of anxiety as well as 4 episodes of coughing up blood clots. Patient reports that she had a Jairo procedures today at [facility]. Patient reports that she did have approximately 10 sutures placed at the base of her tongue. Patient reports that she had approximately 4 episodes where she coughed up some small blood clots. Denies any bright red blood. Denies any chest pain shortness breath nausea vomiting or diarrhea. Patient reports that this gave her tremendous amount of anxiety. Patient then presented to ED for evaluation. Patient denies any other complaints. States that she cannot be secondary to tubal ligation. Systemic: Pt denies fatigue, fever/chills, rash. Pt denies weakness, night sweats, weight loss. Neuro: Pt denies headache, visual disturbances, syncope or pre-syncope. HEENT: Pt denies ocular discharge or irritation, otalgia, rhinorrhea, pharyngitis or notable lymphadenopathy. Cardiopulmonary: Pt denies chest pain, SOB, heart palpitations, dyspnea on exertion. Abdominal/GI: Pt denies abdominal pain, n/v/d. : Pt denies dysuria, burning w/ urination, frequency/urgency. Denies new onset urinary or bowel incontinence. MSK: Pt denies myalgia, loss of strength or function in extremities. Neuro: Pt denies new onset weakness, paresthesias. (Lionel Adames) - Related Data Previous Rx's Medication Instructions Recorded Amoxic-Pot Clav 875-125Mg 1 tab PO Q12HR #20 tablet 05/22/17 [Augmentin 875-125] HYDROcodone/APAP 5-325MG [[place] 1 each PO Q4HR PRN #10 tab 05/22/17 5-325] Ibuprofen [Motrin] 400 mg PO Q6HR PRN #0 tab 05/22/17 Nicotine 14Mg/24Hr Patch [Habitrol] 1 patch TRANSDERM DAILY #30 patch 05/22/17 Allergies Allergy/AdvReac Type Severity Reaction Status Date / Time unknown antibiotic Allergy Rash/Hives Uncoded 08/11/18 00:04 Review of Systems ROS Other: All systems not noted in ROS Statement are negative. <Lionel Adames - Last Filed: 08/11/18 01:38> ROS Other: All systems not noted in ROS Statement are negative. <Anh Magana - Last Filed: 08/11/18 02:40> ROS Statement: Those systems with pertinent positive or pertinent negative responses have been documented in the HPI. Past Medical History Past Medical History: No Reported History Additional Past Medical History / Comment(s): hx back pain, cellulitis in throat History of Any Multi-Drug Resistant Organisms: None Reported Past Surgical History: Appendectomy, Section, Cholecystectomy, Tubal Ligation Additional Past Surgical History / Comment(s): surgery to throat for cellulitis, cyst removed from thyroid Past Anesthesia/Blood Transfusion Reactions: No Reported Reaction Past Psychological History: Anxiety, Bipolar, Panic Disorder Smoking Status: Current every day smoker Past Alcohol Use History: None Reported Past Drug Use History: None Reported, Marijuana - Past Family History Father Family Medical History: Diabetes Mellitus <Lionel Adames - Last Filed: 08/11/18 01:38> General Exam Limitations: no limitations <Lionel Adames - Last Filed: 08/11/18 01:38> - General Exam Comments Initial Comments: Constitutional: NAD, AOX3, Pt has pleasant affect. HEENT: NC/AT, trachea midline, neck supple, no lymphadenopathy. Posterior pharynx non erythematous, without exudates. External ears appear normal, without discharge. Mucous membranes moist. Eyes PERRLA, EOM intact. There is no scleral icterus. No pallor noted. Cardiopulmonary: RRR, no murmurs, rubs or gallops, no JVD noted. Lungs CTAB in anterior and posterior holder. No peripheral edema. Abdominal exam: Abdomen soft and non-distended. Abdomen non-tender to palpation in all 4 quadrants. Bowel sounds active in LLQ. No hepatosplenomegaly. No ecchymosis Neuro: CN II-XII grossly intact. No nuchal rigidity. No raccon eyes, no pires sign, no hemotympanum. No cervical spinal tenderness. MSK: Surgical site dry, no erythema, no signs of infection. No posterior calf tenderness bilaterally, homans sign negative bilaterally. Posterior tibialis and radial pulse +2 bilaterally. Sensation intact in upper and lower extremities. Full active ROM in upper and lower extremities, 5/5 stregnth. (Lionel Adames) Course Vital Signs 08/11/18 08/11/18 08/11/18 00:00 00:44 01:54 Temperature 98.7 F 97.8 F Pulse Rate 121 H 87 72 Respiratory 20 18 18 Rate Blood Pressure 138/102 111/69 97/58 O2 Sat by Pulse 97 97 98 Oximetry Medical Decision Making - Lab Data Result diagrams: 08/11/18 00:40 08/11/18 00:40 <Lionel Adames - Last Filed: 08/11/18 01:38> - Lab Data Result diagrams: 08/11/18 00:40 08/11/18 00:40 <Anh Magana - Last Filed: 08/11/18 02:40> - Medical Decision Making 37-year-old female patient with past medical history of appendectomy, cholecystectomy, status post tubal ligation presents to ED with CC of anxiety as well as 4 episodes of coughing up blood clots. Patient reports that she had a Jairo procedures today at [facility]. Patient reports that she did have approximately 10 sutures placed at the base of her tongue. Patient reports that she had approximately 4 episodes where she coughed up some small blood clots. Denies any bright red blood. Denies any chest pain shortness breath nausea vomiting or diarrhea. Patient reports that this gave her tremendous amount of anxiety. Patient then presented to ED for evaluation. Patient denies any other complaints. States that she cannot be secondary to tubal ligation. Patient will signs this display tachycardia 121 b pm. HR 87 after administration of anxiolytic. Vital signs otherwise within acceptable limits. Physical exam did not display acute pathology. Laboratory investigations revealed a leukocytosis of 24.6. Likely reactive secondary to surgery. CMP nonimpressive. Chest x-ray revealed no acute process. Patient much improved after administration of anxiolytic. Patient is currently asymptomatic. Patient will be discharged, follow up with primary care provider as well as surgeon tomorrow. Patient return to ER condition worsens in any way. Case discussed with Dr. Magana. Pt not driving home. (Lionel Adames) I was available for consultation in the emergency department. The history and physical exam were done by the midlevel provider. [facility] I reviewed the case with the midlevel provider and based on their presentation of the patient, I agree with the assessment, medical decision making and plan of care as documented. Chart was dictated using [employer] dictation software. Attempts were made to correct any dictation errors however some typographical errors may persist. (Anh Magana) - Lab Data Lab Results 08/11/18 08/11/18 Range/Units 00:40 00:40 WBC 24.6 H (3.8-10.6) k/uL RBC 5.16 (3.80-5.40) m/uL Hgb 13.2 (11.4-16.0) gm/dL Hct 41.7 (34.0-46.0) % MCV 80.9 (80.0-100.0) fL MCH 25.6 (25.0-35.0) pg MCHC 31.7 (31.0-37.0) g/dL RDW 15.3 (11.5-15.5) % Plt Count 375 (150-450) k/uL Neutrophils % 93 % Lymphocytes % 5 % Monocytes % 2 % Eosinophils % 1 % Basophils % 0 % Neutrophils # 22.7 H (1.3-7.7) k/uL Lymphocytes # 1.1 (1.0-4.8) k/uL Monocytes # 0.4 (0-1.0) k/uL Eosinophils # 0.3 (0-0.7) k/uL Basophils # 0.0 (0-0.2) k/uL Hypochromasia Slight Sodium 138 (137-145) mmol/L Potassium 4.2 (3.5-5.1) mmol/L Chloride 104 (98-107) mmol/L Carbon Dioxide 24 (22-30) mmol/L Anion Gap 10 mmol/L BUN 8 (7-17) mg/dL Creatinine 0.68 (0.52-1.04) mg/dL Est GFR (CKD-EPI)AfAm >90 (>60 ml/min/1.73 sqM) Est GFR (CKD-EPI)NonAf >90 (>60 ml/min/1.73 sqM) Glucose 128 H (74-99) mg/dL Calcium 9.4 (8.4-10.2) mg/dL Total Bilirubin 1.0 (0.2-1.3) mg/dL AST 31 (14-36) U/L ALT 21 (9-52) U/L Alkaline Phosphatase 106 (38-126) U/L Total Protein 7.5 (6.3-8.2) g/dL Albumin 4.4 (3.5-5.0) g/dL Disposition Is patient prescribed a controlled substance at d/c from ED?: No <Lionel Adames - Last Filed: 08/11/18 01:38> <Anh Magana - Last Filed: 08/11/18 02:40> Clinical Impression: Anxiety, History of thyroglossal duct cyst removal Disposition: HOME SELF-CARE Condition: Stable Instructions (If sedation given, give patient instructions): Anxiety (ED) Additional Instructions: Patient to adhere to previously discussed treatment plan and will take medication(s) as directed. Patient to follow up with PCP in 1-2 days. Patient to return to ED if symptoms do not improve. Follow-up with primary care provider as well as surgeon tomorrow. Return to ER if condition worsens in any way. Referrals: Braeden Pratt MD [Primary Care Provider] - 1-2 days
[2018-08-11 01:18] LABS: ALT 21 U/L (9-52); AST 31 U/L (14-36); Albumin 4.4 g/dL (3.5-5.0); Alkaline Phosphatase 106 U/L (38-126); Anion Gap 10 mmol/L; Blood Urea Nitrogen 8 mg/dL (7-17); Calcium 9.4 mg/dL (8.4-10.2); Carbon Dioxide 24 mmol/L (22-30); Chloride 104 mmol/L (98-107); Glucose 128 mg/dL (74-99); Potassium 4.2 mmol/L (3.5-5.1); Sodium 138 mmol/L (137-145); Total Protein 7.5 g/dL (6.3-8.2)
[2018-08-11 01:56] VITALS: BP 97/58; PULSE 72; TEMP 97.8
== END 2018-08-11 01:56 | disposition home or self-care (01) ==
LOC: EC 23:57
DX: F41.9 Anxiety disorder, unspecified (principal); R04.2 Hemoptysis; D72.829 Elevated white blood cell count, unspecified; F17.200 Nicotine dependence, unspecified, uncomplicated; Z90.49 Acquired absence of other specified parts of digestive tract; Z88.1 Allergy status to other antibiotic agents; Z98.51 Tubal ligation status; Z98.890 Other specified postprocedural states
CPT/HCPCS: 36415; 71046; 80053; 85025; 99284

== ENCOUNTER 2019-03-16 21:45 | Emergency (ER) | payer OTHER ==
[2019-03-16] MEDS ORDERED: KETOROLAC 30 MG/ML 1 ML VIAL IM STA (22:33)
[2019-03-16] MEDS ORDERED: ONDANSETRON ODT 4 MG TAB PO STA (22:33)
--- NOTE | 2019-03-16 22:50 | ED ---
Nausea/Vomiting/Diarrhea HPI - General Chief complaint: Nausea/Vomiting/Diarrhea Stated complaint: Poss flu Time Seen by Provider: 03/16/19 22:13 Source: patient Mode of arrival: ambulatory Limitations: no limitations - History of Present Illness Initial comments: Patient is a 38-year-old female presenting to the emergency Department with an acute onset of nausea, vomiting, body aches. Patient states her symptoms started approximately 3 hours prior to arrival. Patient states she was feeling fine all day until approximately 6:54 PM. Patient is also complaining of slight headache, mild cough, hot flashes, and chills. Patient attempted to take a Zofran and ibuprofen tablets but vomited them up shortly after. Patient denies any fever. She has no other complaints at this time. Patient denies secondary to tubal ligation. She has no other complaints at this time. Patient is requesting a work note for tomorrow. Upon arrival to the ER, vital signs are stable. - Related Data Previous Rx's Medication Instructions Recorded Amoxic-Pot Clav 875-125Mg 1 tab PO Q12HR #20 tablet 05/22/17 [Augmentin 875-125] HYDROcodone/APAP 5-325MG [[place] 1 each PO Q4HR PRN #10 tab 05/22/17 5-325] Ibuprofen [Motrin] 400 mg PO Q6HR PRN #0 tab 05/22/17 Nicotine 14Mg/24Hr Patch [Habitrol] 1 patch TRANSDERM DAILY #30 patch 05/22/17 Allergies Allergy/AdvReac Type Severity Reaction Status Date / Time unknown antibiotic Allergy Rash/Hives Uncoded 08/11/18 00:04 Review of Systems ROS Statement: Those systems with pertinent positive or pertinent negative responses have been documented in the HPI. ROS Other: All systems not noted in ROS Statement are negative. Past Medical History Past Medical History: No Reported History Additional Past Medical History / Comment(s): hx back pain, History of Any Multi-Drug Resistant Organisms: None Reported Past Surgical History: Appendectomy, Section, Cholecystectomy, Tubal Ligation Additional Past Surgical History / Comment(s): surgery to throat for cellulitis, cyst removed from thyroid Past Anesthesia/Blood Transfusion Reactions: No Reported Reaction Past Psychological History: Anxiety, Bipolar, Panic Disorder Smoking Status: Current every day smoker Past Alcohol Use History: None Reported Past Drug Use History: Marijuana - Past Family History Father Family Medical History: Diabetes Mellitus General Exam - General Exam Comments Initial Comments: GENERAL: Well-appearing, well-nourished and in no acute distress. HEAD: Atraumatic, normocephalic. EYES: Pupils equal round and reactive to light, extraocular movements intact, sclera anicteric, conjunctiva are normal. ENT: TMs normal, nares patent, oropharynx clear without exudates. Moist mucous membranes. NECK: Normal range of motion, supple without lymphadenopathy or JVD. LUNGS: Breath sounds clear to auscultation bilaterally and equal. No wheezes rales or rhonchi. HEART: Regular rate and rhythm without murmurs, rubs or gallops. ABDOMEN: Mild generalized abdominal tenderness, no sharp shooting pain in any quadrant. Soft, normoactive bowel sounds. No guarding, no rebound. No masses appreciated. EXTREMITIES: Normal range of motion, no pitting or edema. No clubbing or cyanosis. NEUROLOGICAL: Normal speech, normal gait. PSYCH: Normal mood, normal affect. SKIN: Warm, Dry, normal turgor, no rashes or lesions noted. Limitations: no limitations Course Vital Signs 03/16/19 21:47 Temperature 97.8 F Pulse Rate 78 Respiratory 18 Rate Blood Pressure 112/71 O2 Sat by Pulse 100 Oximetry Medical Decision Making - Medical Decision Making Patient is 38-year-old female presenting with acute onset of flulike symptoms x 3 hours. Exam is unremarkable. Patient was given Zofran and Toradol for her body aches. Influenza is negative. I discussed with patient her symptoms are most likely related to gastroenteritis. Patient will be sent home with Zofran as well as a work note. She is agreement with this plan of care. Patient is stable for discharge at this time. Return parameters were discussed with the patient she verbalized understanding. - Lab Data Lab Results 03/16/19 Range/Units 23:08 Influenza Type A RNA Not Detected (Not Detectd) Influenza Type B (PCR) Not Detected (Not Detectd) Disposition Clinical Impression: Nausea & vomiting, Gastroenteritis Disposition: HOME SELF-CARE Condition: Stable Instructions (If sedation given, give patient instructions): Acute Nausea and Vomiting (ED) Additional Instructions: Please return to the Emergency Department if symptoms worsen or any other concerns. Take Zofran as needed for nausea. Aches small sips of fluid as well as bland foods. Is patient prescribed a controlled substance at d/c from ED?: No Referrals: Braeden Pratt MD [Primary Care Provider] - 1-2 days
[2019-03-17] MEDS ORDERED: ONDANSETRON 4 MG ODT STARTER PACK 2 TAB BTL PO STA (00:03)
[2019-03-17 00:24] VITALS: BP 116/70; PULSE 72; RESP 16; TEMP 98.7
== END 2019-03-17 00:23 | disposition home or self-care (01) ==
LOC: SUPCPDRO 21:45 → EC 21:45
DX: K52.9 Noninfective gastroenteritis and colitis, unspecified (principal); R51 Headache; R05 Cough; F17.200 Nicotine dependence, unspecified, uncomplicated; Z90.49 Acquired absence of other specified parts of digestive tract; Z98.51 Tubal ligation status; Z88.1 Allergy status to other antibiotic agents
CPT/HCPCS: 87502; 99284; 96372; J1885; S0119

== ENCOUNTER 2019-08-26 05:38 | Emergency (ER) | payer OTHER ==
[2019-08-26] MEDS ORDERED: KETOROLAC 30 MG/ML 1 ML VIAL IVP STA (06:14)
[2019-08-26] MEDS ORDERED: SODIUM CHLORIDE 0.9% 1,000 ML IV ONE (06:14)
--- NOTE | 2019-08-26 06:31 | ED ---
General Adult HPI - General Chief complaint: ENT Stated complaint: ENT Time Seen by Provider: 08/26/19 05:59 Source: patient, RN notes reviewed Mode of arrival: ambulatory Limitations: no limitations - History of Present Illness Initial comments: 38-year-old female presents emergency Department chief complaint of possible infection. 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 Patient's had several surgeries last surgery 2 years ago at [facility]. Patient states that they removed some tissue, part of her hyoid. Patient states that she feels some fullness in this region and feels like she has a sore throat. Patient's concerned she may have strep possible STD. Patient states that her boyfriend has been cheating on states that she is concerned this may be related to us the. Patient denies any chance states she's had a tubal ligation. Denies any abdominal pain. Patient states she also has some fullness of her ears, denies sinus congestion, sinus pressure. No headache or dizziness. She has no difficulty swallowing other than discomfort, no difficulty breathing. - Related Data Previous Rx's Medication Instructions Recorded Amoxic-Pot Clav 875-125Mg 1 tab PO Q12HR #20 tablet 05/22/17 [Augmentin 875-125] HYDROcodone/APAP 5-325MG [[place] 1 each PO Q4HR PRN #10 tab 05/22/17 5-325] Ibuprofen [Motrin] 400 mg PO Q6HR PRN #0 tab 05/22/17 Nicotine 14Mg/24Hr Patch [Habitrol] 1 patch TRANSDERM DAILY #30 patch 05/22/17 Amoxicillin/Potassium Clav 1 tab PO Q12HR #20 tab 08/26/19 [Augmentin 875-125 Tablet] Ibuprofen [Motrin] 800 mg PO Q6HR #30 tab 08/26/19 Allergies Allergy/AdvReac Type Severity Reaction Status Date / Time unknown antibiotic Allergy Rash/Hives Uncoded 08/26/19 05:47 Review of Systems ROS Statement: Those systems with pertinent positive or pertinent negative responses have been documented in the HPI. ROS Other: All systems not noted in ROS Statement are negative. Past Medical History Past Medical History: No Reported History Additional Past Medical History / Comment(s): hx back pain, History of Any Multi-Drug Resistant Organisms: None Reported Past Surgical History: Appendectomy, Section, Cholecystectomy, Tubal Ligation Additional Past Surgical History / Comment(s): surgery to throat for cellulitis, cyst removed from thyroid Past Anesthesia/Blood Transfusion Reactions: No Reported Reaction Past Psychological History: Anxiety, Bipolar, Panic Disorder Smoking Status: Current every day smoker Past Alcohol Use History: None Reported Past Drug Use History: Marijuana - Past Family History Father Family Medical History: Diabetes Mellitus General Exam Limitations: no limitations General appearance: alert, in no apparent distress Head exam: Present: atraumatic, normocephalic, normal inspection Eye exam: Present: normal appearance, PERRL, EOMI. Absent: scleral icterus, conjunctival injection, periorbital swelling ENT exam: Present: mucous membranes moist, TM's normal bilaterally, normal external ear exam. Absent: normal exam, normal oropharynx (Small tonsillar stones noted) Neck exam: Present: normal inspection, tenderness (Mild anterior), full ROM. Absent: meningismus, lymphadenopathy Respiratory exam: Present: normal lung sounds bilaterally. Absent: respiratory distress, wheezes, rales, rhonchi, stridor Cardiovascular Exam: Present: regular rate, normal rhythm, normal heart sounds. Absent: systolic murmur, diastolic murmur, rubs, gallop, clicks GI/Abdominal exam: Present: soft, normal bowel sounds. Absent: distended, tenderness, guarding, rebound, rigid Back exam: Absent: CVA tenderness (R), CVA tenderness (L) Neurological exam: Present: alert, oriented X3 Skin exam: Present: warm, dry, intact, normal color. Absent: rash Course Vital Signs 08/26/19 05:40 Temperature 98 F Pulse Rate 80 Respiratory 20 Rate Blood Pressure 116/70 O2 Sat by Pulse 98 Oximetry Medical Decision Making - Medical Decision Making 38-year-old female presented for possible submandibular infection. Labs and imaging reviewed and no significant findings heterophile negative, strep negative. This is a concern as this is her typical presentation patient we cover with antibiotics until she can follow-up on Tuesday return parameters were discussed. - Lab Data Result diagrams: 08/26/19 06:26 08/26/19 06:26 Lab Results 08/26/19 08/26/19 08/26/19 Range/Units 06:14 06:26 06:26 WBC 15.8 H (3.8-10.6) k/uL RBC 5.18 (3.80-5.40) m/uL Hgb 12.6 (11.4-16.0) gm/dL Hct 41.4 (34.0-46.0) % MCV 79.8 L (80.0-100.0) fL MCH 24.3 L (25.0-35.0) pg MCHC 30.5 L (31.0-37.0) g/dL RDW 16.1 H (11.5-15.5) % Plt Count 393 (150-450) k/uL Neutrophils % 69 % Lymphocytes % 23 % Monocytes % 4 % Eosinophils % 3 % Basophils % 0 % Neutrophils # 10.9 H (1.3-7.7) k/uL Lymphocytes # 3.6 (1.0-4.8) k/uL Monocytes # 0.7 (0-1.0) k/uL Eosinophils # 0.4 (0-0.7) k/uL Basophils # 0.1 (0-0.2) k/uL Hypochromasia Slight Anisocytosis Slight Sodium 139 (137-145) mmol/L Potassium 3.8 (3.5-5.1) mmol/L Chloride 107 (98-107) mmol/L Carbon Dioxide 25 (22-30) mmol/L Anion Gap 7 mmol/L BUN 9 (7-17) mg/dL Creatinine 0.79 (0.52-1.04) mg/dL Est GFR (CKD-EPI)AfAm >90 (>60 ml/min/1.73 sqM) Est GFR (CKD-EPI)NonAf >90 (>60 ml/min/1.73 sqM) Glucose 102 H (74-99) mg/dL Plasma Lactic Acid Gonzalo (0.7-2.0) mmol/L Calcium 9.1 (8.4-10.2) mg/dL Total Bilirubin 0.5 (0.2-1.3) mg/dL AST 23 (14-36) U/L ALT 19 (4-34) U/L Alkaline Phosphatase 90 (38-126) U/L Total Protein 6.7 (6.3-8.2) g/dL Albumin 3.8 (3.5-5.0) g/dL Amylase 37 (30-110) U/L Urine Color Urine Appearance (Clear) Urine pH (5.0-8.0) Ur Specific Schneider (1.001-1.035) Urine Protein (Negative) Urine Glucose (UA) (Negative) Urine Ketones (Negative) Urine Blood (Negative) Urine Nitrite (Negative) Urine Bilirubin (Negative) Urine Urobilinogen (<2.0) mg/dL Ur Leukocyte Esterase (Negative) Urine RBC (0-5) /hpf Urine WBC (0-5) /hpf Ur Squamous Epith Cells (0-4) /hpf Urine Mucus (None) /hpf Heterophile Antibody (Negative) Group A Strep Rapid Negative (Negative) 08/26/19 08/26/19 08/26/19 Range/Units 06:26 06:26 06:26 WBC (3.8-10.6) k/uL RBC (3.80-5.40) m/uL Hgb (11.4-16.0) gm/dL Hct (34.0-46.0) % MCV (80.0-100.0) fL MCH (25.0-35.0) pg MCHC (31.0-37.0) g/dL RDW (11.5-15.5) % Plt Count (150-450) k/uL Neutrophils % % Lymphocytes % % Monocytes % % Eosinophils % % Basophils % % Neutrophils # (1.3-7.7) k/uL Lymphocytes # (1.0-4.8) k/uL Monocytes # (0-1.0) k/uL Eosinophils # (0-0.7) k/uL Basophils # (0-0.2) k/uL Hypochromasia Anisocytosis Sodium (137-145) mmol/L Potassium (3.5-5.1) mmol/L Chloride (98-107) mmol/L Carbon Dioxide (22-30) mmol/L Anion Gap mmol/L BUN (7-17) mg/dL Creatinine (0.52-1.04) mg/dL Est GFR (CKD-EPI)AfAm (>60 ml/min/1.73 sqM) Est GFR (CKD-EPI)NonAf (>60 ml/min/1.73 sqM) Glucose (74-99) mg/dL Plasma Lactic Acid Gonzalo 1.5 (0.7-2.0) mmol/L Calcium (8.4-10.2) mg/dL Total Bilirubin (0.2-1.3) mg/dL AST (14-36) U/L ALT (4-34) U/L Alkaline Phosphatase (38-126) U/L Total Protein (6.3-8.2) g/dL Albumin (3.5-5.0) g/dL Amylase (30-110) U/L Urine Color Yellow Urine Appearance Slightly Cloudy H (Clear) Urine pH 6.0 (5.0-8.0) Ur Specific Schneider 1.030 (1.001-1.035) Urine Protein Negative (Negative) Urine Glucose (UA) Negative (Negative) Urine Ketones Negative (Negative) Urine Blood Large (Negative) Urine Nitrite Negative (Negative) Urine Bilirubin Negative (Negative) Urine Urobilinogen 2.0 (<2.0) mg/dL Ur Leukocyte Esterase Negative (Negative) Urine RBC 2 (0-5) /hpf Urine WBC 9 H (0-5) /hpf Ur Squamous Epith Cells 31 H (0-4) /hpf Urine Mucus Few H (None) /hpf Heterophile Antibody Negative (Negative) Group A Strep Rapid (Negative) Disposition Clinical Impression: Acute pharyngitis, Submandibular gland infection Disposition: HOME SELF-CARE Condition: Stable Instructions (If sedation given, give patient instructions): Pharyngitis (ED) Additional Instructions: Please return to the Emergency Department if symptoms worsen or any other concerns. Prescriptions: Amoxicillin/Potassium Clav [Augmentin 875-125 Tablet] 1 tab PO Q12HR #20 tab Ibuprofen [Motrin] 800 mg PO Q6HR #30 tab Is patient prescribed a controlled substance at d/c from ED?: No Referrals: Braeden Pratt MD [Primary Care Provider] - 1-2 days Time of Disposition: 08:06
[2019-08-26 06:43] LABS: Anisocytosis Slight; Basophils # (A) 0.1 k/uL (0-0.2); Basophils % (A) 0 %; Eosinophils # (A) 0.4 k/uL (0-0.7); Eosinophils % (A) 3 %; HCT 41.4 % (34.0-46.0); HGB 12.6 gm/dL (11.4-16.0); Hypochromasia Slight; Lymphocytes # (A) 3.6 k/uL (1.0-4.8); Lymphocytes % (A) 23 %; MCH 24.3 pg (25.0-35.0); MCHC 30.5 g/dL (31.0-37.0); MCV 79.8 fL (80.0-100.0); Mean Platelet Volume 7.6; Monocytes # (A) 0.7 k/uL (0-1.0); Monocytes % (A) 4 %; Neutrophils # (A) 10.9 k/uL (1.3-7.7); Neutrophils % (A) 69 %; Platelet Count 393 k/uL (150-450); RBC 5.18 m/uL (3.80-5.40); RDW 16.1 % (11.5-15.5); WBC 15.8 k/uL (3.8-10.6)
[2019-08-26 06:49] LABS: ALT 19 U/L (4-34); AST 23 U/L (14-36); African American GFR (CKD) >90 (>60 ml/min/1.73 sqM); Albumin 3.8 g/dL (3.5-5.0); Alkaline Phosphatase 90 U/L (38-126); Amylase 37 U/L (30-110); Anion Gap 7 mmol/L; Blood Urea Nitrogen 9 mg/dL (7-17); Calcium 9.1 mg/dL (8.4-10.2); Carbon Dioxide 25 mmol/L (22-30); Chloride 107 mmol/L (98-107); Glucose 102 mg/dL (74-99); Non-African American GFR(CKD) >90 (>60 ml/min/1.73 sqM); Potassium 3.8 mmol/L (3.5-5.1); Sodium 139 mmol/L (137-145); Total Bilirubin 0.5 mg/dL (0.2-1.3); Total Protein 6.7 g/dL (6.3-8.2)
[2019-08-26 07:02] LABS: Mucus,Urine Few /hpf; RBC,Urine 2 /hpf (0-5); Squamous Epithelial Cell,Urine 31 /hpf (0-4); WBC,Urine 9 /hpf (0-5)
[2019-08-26 07:03] LABS: Appearance,Urine Slightly Cloudy (Clear); Color,Urine Yellow
--- NOTE | 2019-08-26 07:03 | CT ---
EXAMINATION TYPE: CT soft tissue neck w con DATE OF EXAM: 08/26/2019 COMPARISON: 04/29/2017 HISTORY: Sore throat pain, history of submandibular infection CT DLP: 511.4 mGycm Automated exposure control for dose reduction was used. CONTRAST: Performed with IV Contrast, patient injected with 100 mL of Isovue 300. Multiple axial sections were obtained from the level of the pulmonary arteries to the mid orbits with IV contrast. There is no evidence of retro-orbital mass. There is fairly normal aeration of the visualized paranas al sinuses. The maxilla is intact. Submandibular salivary glands are symmetric. The parotid glands ar e symmetric. Epiglottis appears normal. Tongue appears normal. The tonsils are within normal limits. The prevertebral soft tissues are not enlarged. Adenoids show mild thickening and measure up to 1.5 c m. There is narrowing of the nasopharyngeal airway. The subglottic trachea appears normal. I see no c ervical adenopathy. There is normal contrast opacification of the carotid arteries and jugular veins. There is bilateral arterial flow in the vertebral arteries. Thyroid gland is symmetric. There is no evidence of mediastinal adenopathy. IMPRESSION: There is some hypertrophy of the adenoids unchanged. Otherwise negative exam. Normal epiglottis. Norm al appearing salivary glands.
[2019-08-26 07:04] LABS: Bilirubin,Urine Negative (Negative); Blood,Urine Large (Negative); Glucose,Urine (UA) Negative (Negative); Ketones,Urine Negative (Negative); Leukocyte Esterase,Urine Negative (Negative); Nitrite,Urine Negative (Negative); Protein,Urine Negative (Negative)
[2019-08-26] MEDS ORDERED: DEXAMETHASONE SOD PHOSPHATE 10 MG/ML 1 ML VIAL IV STA (08:04)
[2019-08-26] MEDS ORDERED: cefTRIAXone IN SWFI 1,000 MG/10 ML SYRINGE IVP STA (08:04)
[2019-08-26 08:30] VITALS: BP 106/48; PULSE 68; RESP 18; TEMP 98.5
[2019-08-27 14:39] LABS: C. trachomatis,PCR Negative (Neg,Equiv); Chlamydia trachomatis Source Urine; N. gonorrhoeae,PCR Negative (Neg,Equiv); Neisseria Source Urine
== END 2019-08-26 08:28 | disposition home or self-care (01) ==
LOC: EC 05:38
DX: K11.20 Sialoadenitis, unspecified (principal); J02.9 Acute pharyngitis, unspecified; F17.200 Nicotine dependence, unspecified, uncomplicated; Z98.890 Other specified postprocedural states
CPT/HCPCS: 36415; 80053; 82150; 83605; 85025; 86308; 81001; 87491; 87591; 87081; 87430; 70491; 99284; 96374; 96375 ×2; 96361 ×2; J1100; J0696; J1885; Q9967

== ENCOUNTER 2020-03-20 17:22 | Emergency (ER) | payer OTHER ==
[2020-03-20 17:49] VITALS: RESP 18
[2020-03-20] MEDS ORDERED: SODIUM CHLORIDE 0.9% 1,000 ML IV STA (18:57)
[2020-03-20] MEDS ORDERED: ACETAMINOPHEN TAB 500 MG TAB PO STA (18:58)
[2020-03-20] MEDS ORDERED: IBUPROFEN 600 MG TAB PO STA (18:58)
[2020-03-20 19:37] LABS: Anisocytosis Slight; Basophils # (A) 0.1 k/uL (0-0.2); Basophils % (A) 0 %; Eosinophils # (A) 0.4 k/uL (0-0.7); Eosinophils % (A) 2 %; HCT 43.1 % (34.0-46.0); HGB 13.5 gm/dL (11.4-16.0); Hypochromasia Slight; Lymphocytes # (A) 0.9 k/uL (1.0-4.8); Lymphocytes % (A) 4 %; MCH 24.5 pg (25.0-35.0); MCHC 31.3 g/dL (31.0-37.0); MCV 78.2 fL (80.0-100.0); Microcytosis Slight; Monocytes # (A) 0.8 k/uL (0-1.0); Monocytes % (A) 3 %; Neutrophils # (A) 21.9 k/uL (1.3-7.7); Neutrophils % (A) 91 %; Platelet Count 301 k/uL (150-450); RBC 5.51 m/uL (3.80-5.40); RDW 16.2 % (11.5-15.5); WBC 24.1 k/uL (3.8-10.6)
[2020-03-20 19:47] LABS: ALT 17 U/L (4-34); AST 25 U/L (14-36); African American GFR (CKD) >90 (>60 ml/min/1.73 sqM); Albumin 4.1 g/dL (3.5-5.0); Alkaline Phosphatase 108 U/L (38-126); Amylase <30 U/L (30-110); Anion Gap 7 mmol/L; Blood Urea Nitrogen 7 mg/dL (7-17); Calcium 9.3 mg/dL (8.4-10.2); Carbon Dioxide 24 mmol/L (22-30); Chloride 105 mmol/L (98-107); Glucose 106 mg/dL (74-99); Lipase 22 U/L (23-300); Non-African American GFR(CKD) >90 (>60 ml/min/1.73 sqM); Potassium 4.1 mmol/L (3.5-5.1); Sodium 136 mmol/L (137-145); Total Bilirubin 2.1 mg/dL (0.2-1.3); Total Protein 7.2 g/dL (6.3-8.2)
[2020-03-20] MEDS ORDERED: SODIUM CHLORIDE 0.9% 500 ML 500 ML IV STA (19:54)
[2020-03-20 20:13] LABS: Appearance,Urine Cloudy (Clear); Bacteria,Urine Moderate /hpf; Bilirubin,Urine Negative (Negative); Blood,Urine Small (Negative); Color,Urine Yellow; Glucose,Urine (UA) Negative (Negative); Ketones,Urine 1+ (Negative); Leukocyte Esterase,Urine Large (Negative); Mucus,Urine Rare /hpf; Nitrite,Urine Negative (Negative); PH, Urine 5.5 (5.0-8.0); Protein,Urine 1+ (Negative); RBC,Urine 8 /hpf (0-5); Specific Gravity,Urine 1.017 (1.001-1.035); Squamous Epithelial Cell,Urine 1 /hpf (0-4); WBC,Urine 159 /hpf (0-5)
[2020-03-20] MEDS ORDERED: cefTRIAXone IN SWFI 1,000 MG/10 ML SYRINGE IVP STA (20:54)
--- NOTE | 2020-03-20 21:21 | CT ---
EXAMINATION TYPE: CT abdomen pelvis wo con DATE OF EXAM: 03/20/2020 COMPARISON: None available. HISTORY: Fever, abdominal pain CT DLP: 1096.4 mGycm Automated exposure control for dose reduction was used. TECHNIQUE: Helical acquisition of images was performed from the lung bases through the pelvis. FINDINGS: LUNG BASES: No significant abnormality is appreciated. LIVER/GB: No significant abnormality is appreciated. Cholecystectomy. PANCREAS: No significant abnormality is seen. SPLEEN: No significant abnormality is seen. ADRENALS: No significant abnormality is seen. KIDNEYS: No bilateral hydronephrosis or left nephrolithiasis. 2 mm nonobstructing right renal calculu s. FREE AIR: No free air is visualized RETROPERITONEAL ADENOPATHY: None visualized REPRODUCTIVE ORGANS: No significant abnormality is seen URINARY BLADDER: No significant abnormality is seen. PELVIC ADENOPATHY: None visualized. OSSEOUS STRUCTURES: No acute abnormality is seen. Mild to moderate L4-S1 spondylosis. BOWEL: No significant abnormality is seen. Appendectomy noted. OTHER: There is demonstration of a left tubal ligation clip. Additional clip is seen in the right low er quadrant. IMPRESSION: NO DEFINITIVE ACUTE ABNORMALITY OF THE ABDOMEN/PELVIS. RIGHT LOWER QUADRANT SURGICAL CLIP, CONSISTENT WITH DISPLACED RIGHT TUBAL LIGATION CLIP.
--- NOTE | 2020-03-20 21:56 | ED ---
General Adult HPI - General Chief complaint: Nausea/Vomiting/Diarrhea Stated complaint: Back pain/vomiting Time Seen by Provider: 03/20/20 18:13 Source: patient Mode of arrival: ambulatory Limitations: no limitations - History of Present Illness Initial comments: 39-year-old female with a past medical history of back pain, appendectomy, cholecystectomy, tubal ligation presents to the emergency room for a chief complaint of abdominal and back pain. Patient reports she has not right lower quadrant abdominal pain that radiates to her right mid back. States she has pain and pressure when she urinates. States she also has chills and body aches. States yesterday she was vomiting and also vomited a few times today. Patient denies cough medicine sore throat. Patient reports she has had an appendectomy and a cholecystectomy. Patient has no other complaints at this time including shortness of breath, chest pain, headache, or visual changes. - Related Data Previous Rx's Medication Instructions Recorded Cephalexin [Keflex] 500 mg PO Q6HR 14 Days #56 cap 03/20/20 Ondansetron [Zofran ODT] 4 mg PO Q8HR PRN #15 tab 03/20/20 Phenazopyridine [Pyridium] 100 mg PO TID #6 tablet 03/20/20 Allergies Allergy/AdvReac Type Severity Reaction Status Date / Time unknown antibiotic Allergy Rash/Hives Uncoded 03/20/20 21:14 Review of Systems ROS Statement: Those systems with pertinent positive or pertinent negative responses have been documented in the HPI. ROS Other: All systems not noted in ROS Statement are negative. Past Medical History Past Medical History: No Reported History Additional Past Medical History / Comment(s): hx back pain, History of Any Multi-Drug Resistant Organisms: None Reported Past Surgical History: Appendectomy, Section, Cholecystectomy, Tubal Ligation Additional Past Surgical History / Comment(s): surgery to throat for cellulitis, cyst removed from thyroid Past Anesthesia/Blood Transfusion Reactions: No Reported Reaction Past Psychological History: Anxiety, Bipolar, Panic Disorder Smoking Status: Current every day smoker Past Alcohol Use History: None Reported Past Drug Use History: Marijuana - Past Family History Father Family Medical History: Diabetes Mellitus General Exam Limitations: no limitations General appearance: alert Head exam: Present: atraumatic Eye exam: Present: normal appearance, PERRL, EOMI. Absent: scleral icterus ENT exam: Present: normal exam, mucous membranes moist Neck exam: Present: normal inspection, full ROM Respiratory exam: Present: normal lung sounds bilaterally. Absent: respiratory distress Cardiovascular Exam: Present: regular rate, normal rhythm, normal heart sounds GI/Abdominal exam: Present: soft, tenderness (RLQ, no left lower quadrant tender ness. Minimal right upper quadrant abdominal tenderness.), normal bowel sounds. Absent: distended, guarding, rebound, rigid Back exam: Present: CVA tenderness (R). Absent: CVA tenderness (L) Course Vital Signs 03/20/20 03/20/20 03/20/20 17:46 18:59 19:24 Temperature 99.0 F 101.7 F H Pulse Rate 118 H 95 Respiratory 18 18 Rate Blood Pressure 156/88 96/76 O2 Sat by Pulse 99 95 Oximetry 03/20/20 03/20/20 21:24 21:27 Temperature 98.8 F 98.8 F Pulse Rate Respiratory Rate Blood Pressure O2 Sat by Pulse Oximetry Medical Decision Making - Medical Decision Making Vitals are stable however patient does have a fever of 101.7 with reflexive tachycardia of 118. Patient was given antipyretics in this did improve along with her symptoms. CBC does show white blood cell count 24. CMP unremarkable. Bilirubin 2.1, patient has a history of cholecystectomy. No transaminitis or elevated pancreas enzymes. Urinalysis does show evidence of infection with 159 white blood cells. Culture sent. Given flank pain CT abdomen and pelvis was ordered to rule out kidney stone. No definite acute abnormality at this time however patient does have a displaced right tubal ligation clip which was discussed with her. Patient was given IV Rocephin. Patient will be to do outpatient for pyelonephritis. However discussed she follow up with her primary care provider. She'll follow-up with her doctor. - Lab Data Result diagrams: 03/20/20 19:24 03/20/20 19:24 Lab Results 03/20/20 03/20/20 03/20/20 Range/Units 19:24 19:24 19:24 WBC 24.1 H (3.8-10.6) k/uL RBC 5.51 H (3.80-5.40) m/uL Hgb 13.5 (11.4-16.0) gm/dL Hct 43.1 (34.0-46.0) % MCV 78.2 L (80.0-100.0) fL MCH 24.5 L (25.0-35.0) pg MCHC 31.3 (31.0-37.0) g/dL RDW 16.2 H (11.5-15.5) % Plt Count 301 (150-450) k/uL MPV 8.0 Neutrophils % 91 % Lymphocytes % 4 % Monocytes % 3 % Eosinophils % 2 % Basophils % 0 % Neutrophils # 21.9 H (1.3-7.7) k/uL Lymphocytes # 0.9 L (1.0-4.8) k/uL Monocytes # 0.8 (0-1.0) k/uL Eosinophils # 0.4 (0-0.7) k/uL Basophils # 0.1 (0-0.2) k/uL Hypochromasia Slight Anisocytosis Slight Microcytosis Slight Sodium 136 L (137-145) mmol/L Potassium 4.1 (3.5-5.1) mmol/L Chloride 105 (98-107) mmol/L Carbon Dioxide 24 (22-30) mmol/L Anion Gap 7 mmol/L BUN 7 (7-17) mg/dL Creatinine 0.78 (0.52-1.04) mg/dL Est GFR (CKD-EPI)AfAm >90 (>60 ml/min/1.73 sqM) Est GFR (CKD-EPI)NonAf >90 (>60 ml/min/1.73 sqM) Glucose 106 H (74-99) mg/dL Plasma Lactic Acid Gonzalo (0.7-2.0) mmol/L Calcium 9.3 (8.4-10.2) mg/dL Total Bilirubin 2.1 H (0.2-1.3) mg/dL AST 25 (14-36) U/L ALT 17 (4-34) U/L Alkaline Phosphatase 108 (38-126) U/L Total Protein 7.2 (6.3-8.2) g/dL Albumin 4.1 (3.5-5.0) g/dL Amylase <30 L (30-110) U/L Lipase 22 L (23-300) U/L Urine Color Yellow Urine Appearance Cloudy H (Clear) Urine pH 5.5 (5.0-8.0) Ur Specific [place] 1.017 (1.001-1.035) Urine Protein 1+ H (Negative) Urine Glucose (UA) Negative (Negative) Urine Ketones 1+ H (Negative) Urine Blood Small H (Negative) Urine Nitrite Negative (Negative) Urine Bilirubin Negative (Negative) Urine Urobilinogen 2.0 (<2.0) mg/dL Ur Leukocyte Esterase Large H (Negative) Urine RBC 8 H (0-5) /hpf Urine WBC 159 H (0-5) /hpf Ur Squamous Epith Cells 1 (0-4) /hpf Urine Bacteria Moderate H (None) /hpf Urine Mucus Rare H (None) /hpf Coronavirus (PCR) (Not Detectd) 03/20/20 03/20/20 Range/Units 19:24 19:24 WBC (3.8-10.6) k/uL RBC (3.80-5.40) m/uL Hgb (11.4-16.0) gm/dL Hct (34.0-46.0) % MCV (80.0-100.0) fL MCH (25.0-35.0) pg MCHC (31.0-37.0) g/dL RDW (11.5-15.5) % Plt Count (150-450) k/uL MPV Neutrophils % % Lymphocytes % % Monocytes % % Eosinophils % % Basophils % % Neutrophils # (1.3-7.7) k/uL Lymphocytes # (1.0-4.8) k/uL Monocytes # (0-1.0) k/uL Eosinophils # (0-0.7) k/uL Basophils # (0-0.2) k/uL Hypochromasia Anisocytosis Microcytosis Sodium (137-145) mmol/L Potassium (3.5-5.1) mmol/L Chloride (98-107) mmol/L Carbon Dioxide (22-30) mmol/L Anion Gap mmol/L BUN (7-17) mg/dL Creatinine (0.52-1.04) mg/dL Est GFR (CKD-EPI)AfAm (>60 ml/min/1.73 sqM) Est GFR (CKD-EPI)NonAf (>60 ml/min/1.73 sqM) Glucose (74-99) mg/dL Plasma Lactic Acid Gonzalo 1.0 (0.7-2.0) mmol/L Calcium (8.4-10.2) mg/dL Total Bilirubin (0.2-1.3) mg/dL AST (14-36) U/L ALT (4-34) U/L Alkaline Phosphatase (38-126) U/L Total Protein (6.3-8.2) g/dL Albumin (3.5-5.0) g/dL Amylase (30-110) U/L Lipase (23-300) U/L Urine Color Urine Appearance (Clear) Urine pH (5.0-8.0) Ur Specific [place] (1.001-1.035) Urine Protein (Negative) Urine Glucose (UA) (Negative) Urine Ketones (Negative) Urine Blood (Negative) Urine Nitrite (Negative) Urine Bilirubin (Negative) Urine Urobilinogen (<2.0) mg/dL Ur Leukocyte Esterase (Negative) Urine RBC (0-5) /hpf Urine WBC (0-5) /hpf Ur Squamous Epith Cells (0-4) /hpf Urine Bacteria (None) /hpf Urine Mucus (None) /hpf Coronavirus (PCR) Not Detected (Not Detectd) Disposition Clinical Impression: Pyelonephritis Disposition: HOME SELF-CARE Condition: Good Instructions (If sedation given, give patient instructions): Kidney Infection (ED) Additional Instructions: Please take antibiotic as directed. Take Zofran as needed for nausea. Take Pyridium for pain with urination. Drink plenty of fluids. Take Motrin and Tylenol for fevers. If you're having worsening symptoms such as uncontrolled fevers, increased nausea vomiting where you are not able to keep down liquids or your antibiotic, or worsening pain return to the emergency room. Otherwise follow-up with your doctor as soon as possible. Also follow-up with your [employer] to discuss displaced tubal ligation clip. Prescriptions: Cephalexin [Keflex] 500 mg PO Q6HR 14 Days #56 cap Phenazopyridine [Pyridium] 100 mg PO TID #6 tablet Ondansetron [Zofran ODT] 4 mg PO Q8HR PRN #15 tab PRN Reason: Nausea Is patient prescribed a controlled substance at d/c from ED?: No Referrals: Denise Desai, PAC [Primary Care Provider] - 1-2 days Time of Disposition: 21:57
[2020-03-20] MEDS ORDERED: CEPHALEXIN 500MG STARTER PACK 4 CAP BTL PO STA (22:00)
[2020-03-20] MEDS ORDERED: ONDANSETRON 4 MG ODT STARTER PACK 2 TAB BTL PO STA (22:00)
[2020-03-20 22:15] VITALS: BP 114/65; PULSE 77; TEMP 98.3
== END 2020-03-20 22:28 | disposition home or self-care (01) ==
LOC: EC 17:22
DX: N12 Tubulo-interstitial nephritis, not specified as acute or chronic (principal); F17.200 Nicotine dependence, unspecified, uncomplicated; Z88.1 Allergy status to other antibiotic agents; Z90.49 Acquired absence of other specified parts of digestive tract; Z98.51 Tubal ligation status
CPT/HCPCS: 36415; 80053; 82150; 83605; 83690; 85025; 81001; 87491; 87591; 87086; 87635; 74176; 99284; 96374; 96361 ×3; J0696; S0119

== ENCOUNTER 2020-09-12 00:59 | Emergency (ER) | payer OTHER ==
[2020-09-12 01:07] VITALS: BP 136/83; PULSE 97; RESP 20; TEMP 97.8
[2020-09-12] MEDS ORDERED: LIDOCAINE 1% INJ 10MG/ML (20 ML MDV) SQ ONE (01:17)
[2020-09-12] MEDS ORDERED: ACET/COD 300 MG/30 MG STARTER PACK 6 TAB BTL PO STA (01:17)
[2020-09-12] MEDS ORDERED: BACITRACIN OINT 1 EACH PACKET TOPICAL ONE (01:17)
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
[2020-09-12] MEDS ORDERED: CEPHALEXIN 500MG STARTER PACK 4 CAP BTL PO STA (02:24)
[2020-09-12] MEDS ORDERED: ONDANSETRON 4 MG ODT STARTER PACK 2 TAB BTL PO STA (02:24)
== END 2020-09-12 02:41 | disposition home or self-care (01) ==
LOC: EC 00:59
DX: S02.32XA Fracture of orbital floor, left side, initial encounter for closed fracture (principal); S00.12XA Contusion of left eyelid and periocular area, initial encounter; F17.200 Nicotine dependence, unspecified, uncomplicated; F12.90 Cannabis use, unspecified, uncomplicated; Z83.3 Family history of diabetes mellitus; Z79.899 Other long term (current) drug therapy; Y09 Assault by unspecified means
CPT/HCPCS: 70486; 12013; 99284; J2001; S0119

== ENCOUNTER 2021-11-18 08:08 | Emergency (ER) | payer OTHER ==
[2021-11-18 08:13] VITALS: RESP 16; TEMP 98.3
[2021-11-18] MEDS ORDERED: LIDOCAINE 1% INJ 10MG/ML (20 ML MDV) SQ ONE (08:18)
--- NOTE | 2021-11-18 08:22 | ED ---
Skin/Abscess/FB HPI - General Chief complaint: Skin/Abscess/Foreign Body Stated complaint: lump on shoulder Time Seen by Provider: 11/18/21 08:13 Source: patient, RN notes reviewed, old records reviewed Mode of arrival: ambulatory Limitations: no limitations - History of Present Illness Initial comments: There is a well-appearing 41-year-old female who presents to emergency room with a painful lump on her left shoulder for the past couple days. States that she was squeezing it and she did have some white drainage. She denies any fevers, no nausea vomiting or diarrhea. MD complaint: abscess/boil -: days(s) (2) Tetanus Up to Date: yes Location: LUE (shoulder) Severity scale (1-10): 6 Quality: constant Consistency: constant Improves with: none Worsens with: palpation Context: none Associated symptoms: denies other symptoms Treatments Prior to Arrival: none - Related Data Previous Rx's Medication Instructions Recorded Cephalexin [Keflex] 500 mg PO Q6HR 14 Days #56 cap 03/20/20 Ondansetron [Zofran ODT] 4 mg PO Q8HR PRN #15 tab 03/20/20 Phenazopyridine [Pyridium] 100 mg PO TID #6 tablet 03/20/20 Cephalexin [Keflex] 500 mg PO Q6H #28 cap 09/12/20 Ibuprofen [Motrin] 600 mg PO Q8HR PRN #30 tab 09/12/20 Allergies Allergy/AdvReac Type Severity Reaction Status Date / Time unknown antibiotic Allergy Rash/Hives Uncoded 11/18/21 08:09 Review of Systems ROS Statement: Those systems with pertinent positive or pertinent negative responses have been documented in the HPI. ROS Other: All systems not noted in ROS Statement are negative. Past Medical History Past Medical History: No Reported History Additional Past Medical History / Comment(s): hx back pain, History of Any Multi-Drug Resistant Organisms: None Reported Past Surgical History: Appendectomy, Section, Cholecystectomy, Tubal Ligation Additional Past Surgical History / Comment(s): surgery to throat for cellulitis, cyst removed from thyroid Past Anesthesia/Blood Transfusion Reactions: No Reported Reaction Past Psychological History: Anxiety, Bipolar, Panic Disorder Smoking Status: Current every day smoker Past Alcohol Use History: Occasional Past Drug Use History: Marijuana - Past Family History Father Family Medical History: Diabetes Mellitus General Exam Limitations: no limitations General appearance: alert, in no apparent distress Head exam: Present: atraumatic Eye exam: Present: normal appearance. Absent: scleral icterus, conjunctival injection, periorbital swelling Neck exam: Present: full ROM. Absent: meningismus Respiratory exam: Absent: respiratory distress, accessory muscle use Cardiovascular Exam: Present: regular rate GI/Abdominal exam: Present: soft Left Shoulder Exam: Present: full ROM, tenderness, swelling, erythema, other (abscess approx 2cm circular). Absent: abrasion, laceration, ecchymosis, deformity, crepitus, dislocation Upper Arm exam: Present: full ROM. Absent: tenderness, swelling Elbow exam: Present: full ROM. Absent: tenderness, swelling Vascular: Present: normal capillary refill. Absent: vascular compromise Neurological exam: Present: alert, oriented X3 Psychiatric exam: Present: normal affect, normal mood Skin exam: Present: warm, dry, intact, normal color. Absent: rash, cyanosis, diaphoretic, petechiae, pallor Course Vital Signs 11/18/21 11/18/21 08:10 08:56 Temperature 98.3 F Pulse Rate 76 68 Respiratory 16 16 Rate Blood Pressure 117/71 140/80 O2 Sat by Pulse 97 99 Oximetry Procedures - Incision & Drainage Consent Obtained: verbal consent Site: upper extremity (shoulder) Anesthetic Used: lidocaine 1% I&D Cleaning Method: Betadine Scalpel Used: #11 I&D Drainage Obtained: Blood, Other (fat tissue) Culture Obtained?: Yes Patient Tolerated Procedure: well Medical Decision Making - Medical Decision Making Patient presents with lump to left shoulder for the past couple of days that is painful and red. Incision and drainage was performed with no purulent drainage, thick white exudate removed. Culture was sent. Patient was instructed to use warm compresses and follow-up with primary care doctor next week. If culture comes back positive for bacterial infection will place patient on antibiotics at that time. Patient is agreeable to this plan of care. Case discussed with Dr. Kumar. Disposition Clinical Impression: Skin lesion Disposition: HOME SELF-CARE Condition: Good Instructions (If sedation given, give patient instructions): Excision of Skin Lesion (DC) Additional Instructions: Keep wound clean and dry. Follow-up with primary care doctor within the next week as needed. Is patient prescribed a controlled substance at d/c from ED?: No Referrals: Braeden Pratt MD [Primary Care Provider] - 1-2 days Time of Disposition: 08:42
[2021-11-18 08:56] VITALS: BP 140/80; PULSE 68
== END 2021-11-18 08:57 | disposition home or self-care (01) ==
LOC: EC 08:08
DX: L98.9 Disorder of the skin and subcutaneous tissue, unspecified (principal); F41.9 Anxiety disorder, unspecified; F31.9 Bipolar disorder, unspecified; F17.200 Nicotine dependence, unspecified, uncomplicated; F12.90 Cannabis use, unspecified, uncomplicated; Z88.1 Allergy status to other antibiotic agents
CPT/HCPCS: 99283 ×2; 96374; 10060 ×2; J2001

== ENCOUNTER 2021-11-18 16:06 | Emergency (ER) | payer OTHER ==
[2021-11-18 16:41] VITALS: BP 115/69; PULSE 80; RESP 16; TEMP 98.1
--- NOTE | 2021-11-18 17:08 | ED ---
Skin/Abscess/FB HPI - General Chief complaint: Skin/Abscess/Foreign Body Stated complaint: Shoulder absess,revisit Time Seen by Provider: 11/18/21 16:42 Source: patient Mode of arrival: ambulatory Limitations: no limitations - History of Present Illness Initial comments: Patient is a 41-year-old female presenting for reevaluation of painful bump to the left shoulder. Patient was seen here earlier today, the wound was incised and a small amount of thick white drainage was produced. Culture was sent and patient was educated on supportive treatment. Patient states that when she got home she was able to express a great deal of thick white material from the incision. Patient is concerned that this may require packing and is worried about potential for infection. She has full range of motion of the arm, no fever or chills, no chest pain or shortness of breath no nausea or vomiting redness, swelling, tenderness, warmth. - Related Data Previous Rx's Medication Instructions Recorded Cephalexin [Keflex] 500 mg PO Q6HR 14 Days #56 cap 03/20/20 Ondansetron [Zofran ODT] 4 mg PO Q8HR PRN #15 tab 03/20/20 Phenazopyridine [Pyridium] 100 mg PO TID #6 tablet 03/20/20 Cephalexin [Keflex] 500 mg PO Q6H #28 cap 09/12/20 Ibuprofen [Motrin] 600 mg PO Q8HR PRN #30 tab 09/12/20 Cephalexin [Keflex] 500 mg PO Q6HR 7 Days #21 cap 11/18/21 Allergies Allergy/AdvReac Type Severity Reaction Status Date / Time unknown antibiotic Allergy Rash/Hives Uncoded 11/18/21 16:41 Review of Systems ROS Statement: Those systems with pertinent positive or pertinent negative responses have been documented in the HPI. ROS Other: All systems not noted in ROS Statement are negative. Past Medical History Past Medical History: No Reported History Additional Past Medical History / Comment(s): hx back pain, History of Any Multi-Drug Resistant Organisms: None Reported Past Surgical History: Appendectomy, Section, Cholecystectomy, Tubal Ligation Additional Past Surgical History / Comment(s): surgery to throat for cellulitis, cyst removed from thyroid Past Anesthesia/Blood Transfusion Reactions: No Reported Reaction Past Psychological History: Anxiety, Bipolar, Panic Disorder Smoking Status: Current every day smoker Past Alcohol Use History: Occasional Past Drug Use History: Marijuana - Past Family History Father Family Medical History: Diabetes Mellitus General Exam Limitations: no limitations General appearance: alert, in no apparent distress Head exam: Present: atraumatic, normocephalic, normal inspection Eye exam: Present: normal appearance, EOMI. Absent: scleral icterus, periorbital swelling Neck exam: Present: normal inspection Extremities exam: Present: normal inspection Neurological exam: Present: alert, oriented X3, CN II-XII intact Psychiatric exam: Present: normal affect, normal mood Skin exam: Present: warm, dry, normal color, other (Small 1 cm incision near the left shoulder where previous cyst was.). Absent: rash Course Vital Signs 11/18/21 16:38 Temperature 98.1 F Pulse Rate 80 Respiratory 16 Rate Blood Pressure 115/69 O2 Sat by Pulse 99 Oximetry Medical Decision Making - Medical Decision Making Patient is a 41-year-old female presenting for reevaluation of painful lump to the left shoulder. Patient earlier had the bump incised and drained, when patient got home she was able to drain a lot more material from the incision and is concerned for possible infection. On examination there is no erythema, warmth, tenderness. Patient has full range of motion of the shoulder. Patient describes the material is thick and white, sounds like a sebaceous cyst. We'll place patient on prophylactic Keflex and educated on wound care. Educated on signs of infection. Follow-up with PCP. Report back to ER with any new or worsening symptoms. Discussed return parameters and answered all questions. Patient conveyed verbal understanding and agreed to the plan. I discussed this case in detail with my attending Dr. Hawk Disposition Clinical Impression: Sebaceous cyst Disposition: HOME SELF-CARE Condition: Good Instructions (If sedation given, give patient instructions): Abscess (ED), Cyst (ED) Additional Instructions: Follow-up with PCP. Report back to ER with any new or worsening symptoms. Take medication as prescribed. Prescriptions: Cephalexin [Keflex] 500 mg PO Q6HR 7 Days #21 cap Is patient prescribed a controlled substance at d/c from ED?: No Referrals: Braeden Pratt MD [Primary Care Provider] - 1-2 days Time of Disposition: 17:08
== END 2021-11-18 17:21 | disposition home or self-care (01) ==
LOC: EC 16:06
DX: L72.3 Sebaceous cyst (principal); F17.200 Nicotine dependence, unspecified, uncomplicated; Z88.1 Allergy status to other antibiotic agents
CPT/HCPCS: 99282